=== PATIENT | male | born 1945 | race Caucasian/White ===

== ENCOUNTER → 2018-08-20 | Outpatient (CLI) | payer OTHER, MEDICARE ==
[~2018-08-20] MED LIST: ATORVASTATIN CA40 MG PO; COREG6.25 MG PO; ECOTRIN325 MG PO; FISH OIL500 MG PO; FUROSEMIDE 40 M40 M1 PO; GLIPIZIDE 10 MG10 MG PO; HYDROCODONE-AP1 EAC6 PO; LISINOPRIL20 MG PO; METFORMIN HCL500 MG PO; NIASPAN 500 MG500 M1 PO; ONGLYZA5 MG PO; PLAVIX 75 MG TA75 M1 PO
== END ==
LOC: HYPER 07:04
DX: E11.622 Type 2 diabetes mellitus with other skin ulcer (principal); L97.821 Non-pressure chronic ulcer of other part of left lower leg limited to breakdown of skin; L97.812 Non-pressure chronic ulcer of other part of right lower leg with fat layer exposed; E11.51 Type 2 diabetes mellitus with diabetic peripheral angiopathy without gangrene; E66.01 Morbid (severe) obesity due to excess calories; E78.5 Hyperlipidemia, unspecified; L30.9 Dermatitis, unspecified; I87.2 Venous insufficiency (chronic) (peripheral); I89.0 Lymphedema, not elsewhere classified; I48.91 Unspecified atrial fibrillation; I25.10 Atherosclerotic heart disease of native coronary artery without angina pectoris; I10 Essential (primary) hypertension; F17.200 Nicotine dependence, unspecified, uncomplicated; Z79.84 Long term (current) use of oral hypoglycemic drugs; Z95.5 Presence of coronary angioplasty implant and graft

== ENCOUNTER → 2018-08-29 | Outpatient (CLI) | payer OTHER, MEDICARE | LOC: HYPER 06:55 | DX: E11.622 Type 2 diabetes mellitus with other skin ulcer (principal); L97.821 Non-pressure chronic ulcer of other part of left lower leg limited to breakdown of skin; L97.811 Non-pressure chronic ulcer of other part of right lower leg limited to breakdown of skin; E11.51 Type 2 diabetes mellitus with diabetic peripheral angiopathy without gangrene; E66.01 Morbid (severe) obesity due to excess calories; I10 Essential (primary) hypertension; L30.9 Dermatitis, unspecified; I87.2 Venous insufficiency (chronic) (peripheral); I48.91 Unspecified atrial fibrillation; I25.10 Atherosclerotic heart disease of native coronary artery without angina pectoris; E78.5 Hyperlipidemia, unspecified; F17.200 Nicotine dependence, unspecified, uncomplicated; Z68.36 Body mass index [BMI] 36.0-36.9, adult; Z79.84 Long term (current) use of oral hypoglycemic drugs ==

== ENCOUNTER → 2018-09-06 | Outpatient (CLI) | payer OTHER, MEDICARE | LOC: HYPER 07:00 | DX: E11.622 Type 2 diabetes mellitus with other skin ulcer (principal); L97.821 Non-pressure chronic ulcer of other part of left lower leg limited to breakdown of skin; L97.812 Non-pressure chronic ulcer of other part of right lower leg with fat layer exposed; L30.9 Dermatitis, unspecified; I87.2 Venous insufficiency (chronic) (peripheral); I89.0 Lymphedema, not elsewhere classified; E11.51 Type 2 diabetes mellitus with diabetic peripheral angiopathy without gangrene; E66.01 Morbid (severe) obesity due to excess calories; E78.5 Hyperlipidemia, unspecified; I48.91 Unspecified atrial fibrillation; I25.10 Atherosclerotic heart disease of native coronary artery without angina pectoris; I10 Essential (primary) hypertension; F17.200 Nicotine dependence, unspecified, uncomplicated; Z68.36 Body mass index [BMI] 36.0-36.9, adult; Z79.84 Long term (current) use of oral hypoglycemic drugs ==

== ENCOUNTER → 2018-09-12 | Outpatient (CLI) | payer OTHER, MEDICARE | LOC: HYPER 06:57 | DX: E11.622 Type 2 diabetes mellitus with other skin ulcer (principal); L97.812 Non-pressure chronic ulcer of other part of right lower leg with fat layer exposed; L97.821 Non-pressure chronic ulcer of other part of left lower leg limited to breakdown of skin; L30.9 Dermatitis, unspecified; I87.2 Venous insufficiency (chronic) (peripheral); I89.0 Lymphedema, not elsewhere classified; E11.51 Type 2 diabetes mellitus with diabetic peripheral angiopathy without gangrene; E66.01 Morbid (severe) obesity due to excess calories; E78.5 Hyperlipidemia, unspecified; I48.91 Unspecified atrial fibrillation; I25.10 Atherosclerotic heart disease of native coronary artery without angina pectoris; I10 Essential (primary) hypertension; F17.200 Nicotine dependence, unspecified, uncomplicated; Z79.84 Long term (current) use of oral hypoglycemic drugs ==

== ENCOUNTER → 2018-09-18 | Outpatient (CLI) | payer OTHER, MEDICARE | LOC: HYPER 09-17 12:01 | DX: E11.622 Type 2 diabetes mellitus with other skin ulcer (principal); L97.812 Non-pressure chronic ulcer of other part of right lower leg with fat layer exposed; L97.821 Non-pressure chronic ulcer of other part of left lower leg limited to breakdown of skin; I87.2 Venous insufficiency (chronic) (peripheral); I89.0 Lymphedema, not elsewhere classified; L30.9 Dermatitis, unspecified; E66.01 Morbid (severe) obesity due to excess calories; E11.51 Type 2 diabetes mellitus with diabetic peripheral angiopathy without gangrene; I10 Essential (primary) hypertension; I48.91 Unspecified atrial fibrillation; I25.10 Atherosclerotic heart disease of native coronary artery without angina pectoris; E78.5 Hyperlipidemia, unspecified; F17.200 Nicotine dependence, unspecified, uncomplicated; Z79.84 Long term (current) use of oral hypoglycemic drugs; Z68.36 Body mass index [BMI] 36.0-36.9, adult ==

== ENCOUNTER → 2018-10-02 | Outpatient (CLI) | payer OTHER, MEDICARE | LOC: HYPER 07:01 | DX: E11.622 Type 2 diabetes mellitus with other skin ulcer (principal); L97.812 Non-pressure chronic ulcer of other part of right lower leg with fat layer exposed; L97.822 Non-pressure chronic ulcer of other part of left lower leg with fat layer exposed; E11.51 Type 2 diabetes mellitus with diabetic peripheral angiopathy without gangrene; I87.2 Venous insufficiency (chronic) (peripheral); I89.0 Lymphedema, not elsewhere classified; I10 Essential (primary) hypertension; L30.9 Dermatitis, unspecified; E66.01 Morbid (severe) obesity due to excess calories; I48.91 Unspecified atrial fibrillation; I25.10 Atherosclerotic heart disease of native coronary artery without angina pectoris; E78.5 Hyperlipidemia, unspecified; R60.0 Localized edema; Z68.36 Body mass index [BMI] 36.0-36.9, adult; Z79.84 Long term (current) use of oral hypoglycemic drugs; F17.200 Nicotine dependence, unspecified, uncomplicated ==

== ENCOUNTER → 2018-10-11 | Outpatient (CLI) | payer OTHER, MEDICARE | LOC: HYPER 07:08 | DX: E11.622 Type 2 diabetes mellitus with other skin ulcer (principal); L97.822 Non-pressure chronic ulcer of other part of left lower leg with fat layer exposed; L97.812 Non-pressure chronic ulcer of other part of right lower leg with fat layer exposed; I87.2 Venous insufficiency (chronic) (peripheral); E11.51 Type 2 diabetes mellitus with diabetic peripheral angiopathy without gangrene; I10 Essential (primary) hypertension; I89.0 Lymphedema, not elsewhere classified; L30.9 Dermatitis, unspecified; E66.01 Morbid (severe) obesity due to excess calories; I48.91 Unspecified atrial fibrillation; I25.10 Atherosclerotic heart disease of native coronary artery without angina pectoris; E78.5 Hyperlipidemia, unspecified; F17.200 Nicotine dependence, unspecified, uncomplicated; Z68.36 Body mass index [BMI] 36.0-36.9, adult; Z79.84 Long term (current) use of oral hypoglycemic drugs ==

== ENCOUNTER → 2018-10-17 | Outpatient (CLI) | payer OTHER, MEDICARE | LOC: HYPER 06:35 | DX: E11.622 Type 2 diabetes mellitus with other skin ulcer (principal); L97.822 Non-pressure chronic ulcer of other part of left lower leg with fat layer exposed; L97.812 Non-pressure chronic ulcer of other part of right lower leg with fat layer exposed; L30.9 Dermatitis, unspecified; E11.51 Type 2 diabetes mellitus with diabetic peripheral angiopathy without gangrene; E66.01 Morbid (severe) obesity due to excess calories; E78.5 Hyperlipidemia, unspecified; I87.2 Venous insufficiency (chronic) (peripheral); I89.0 Lymphedema, not elsewhere classified; I48.91 Unspecified atrial fibrillation; I25.10 Atherosclerotic heart disease of native coronary artery without angina pectoris; I10 Essential (primary) hypertension; R60.0 Localized edema; F17.200 Nicotine dependence, unspecified, uncomplicated; Z79.84 Long term (current) use of oral hypoglycemic drugs ==

== ENCOUNTER → 2018-10-31 | Outpatient (CLI) | payer OTHER, MEDICARE | LOC: HYPER 10-22 06:44 | DX: E11.622 Type 2 diabetes mellitus with other skin ulcer (principal); L97.812 Non-pressure chronic ulcer of other part of right lower leg with fat layer exposed; L97.822 Non-pressure chronic ulcer of other part of left lower leg with fat layer exposed; I87.2 Venous insufficiency (chronic) (peripheral); I89.0 Lymphedema, not elsewhere classified; E11.51 Type 2 diabetes mellitus with diabetic peripheral angiopathy without gangrene; I10 Essential (primary) hypertension; L30.9 Dermatitis, unspecified; E78.5 Hyperlipidemia, unspecified; E66.01 Morbid (severe) obesity due to excess calories; I48.91 Unspecified atrial fibrillation; I25.10 Atherosclerotic heart disease of native coronary artery without angina pectoris; R60.9 Edema, unspecified; F17.200 Nicotine dependence, unspecified, uncomplicated; Z79.84 Long term (current) use of oral hypoglycemic drugs; Z68.36 Body mass index [BMI] 36.0-36.9, adult ==

== ENCOUNTER → 2018-11-08 | Outpatient (CLI) | payer OTHER, MEDICARE | LOC: HYPER 06:57 | DX: E11.622 Type 2 diabetes mellitus with other skin ulcer (principal); L97.821 Non-pressure chronic ulcer of other part of left lower leg limited to breakdown of skin; L97.812 Non-pressure chronic ulcer of other part of right lower leg with fat layer exposed; I87.2 Venous insufficiency (chronic) (peripheral); I10 Essential (primary) hypertension; I89.0 Lymphedema, not elsewhere classified; E11.51 Type 2 diabetes mellitus with diabetic peripheral angiopathy without gangrene; L30.9 Dermatitis, unspecified; I48.91 Unspecified atrial fibrillation; I25.10 Atherosclerotic heart disease of native coronary artery without angina pectoris; E78.5 Hyperlipidemia, unspecified; E66.01 Morbid (severe) obesity due to excess calories; R60.9 Edema, unspecified; F17.200 Nicotine dependence, unspecified, uncomplicated; Z68.36 Body mass index [BMI] 36.0-36.9, adult; Z79.84 Long term (current) use of oral hypoglycemic drugs ==

== ENCOUNTER → 2018-11-14 | Outpatient (CLI) | payer OTHER, MEDICARE | LOC: HYPER 06:44 | DX: E11.622 Type 2 diabetes mellitus with other skin ulcer (principal); L97.822 Non-pressure chronic ulcer of other part of left lower leg with fat layer exposed; L97.812 Non-pressure chronic ulcer of other part of right lower leg with fat layer exposed; I87.2 Venous insufficiency (chronic) (peripheral); I89.0 Lymphedema, not elsewhere classified; I10 Essential (primary) hypertension; E11.51 Type 2 diabetes mellitus with diabetic peripheral angiopathy without gangrene; L30.9 Dermatitis, unspecified; E66.01 Morbid (severe) obesity due to excess calories; I48.91 Unspecified atrial fibrillation; I25.10 Atherosclerotic heart disease of native coronary artery without angina pectoris; E78.5 Hyperlipidemia, unspecified; R60.9 Edema, unspecified; F17.200 Nicotine dependence, unspecified, uncomplicated; Z68.36 Body mass index [BMI] 36.0-36.9, adult; Z79.84 Long term (current) use of oral hypoglycemic drugs ==

== ENCOUNTER → 2018-11-21 | Outpatient (CLI) | payer OTHER, MEDICARE | LOC: HYPER 06:54 | DX: E11.622 Type 2 diabetes mellitus with other skin ulcer (principal); L97.821 Non-pressure chronic ulcer of other part of left lower leg limited to breakdown of skin; L97.811 Non-pressure chronic ulcer of other part of right lower leg limited to breakdown of skin; E11.51 Type 2 diabetes mellitus with diabetic peripheral angiopathy without gangrene; I87.2 Venous insufficiency (chronic) (peripheral); I89.0 Lymphedema, not elsewhere classified; I10 Essential (primary) hypertension; R60.9 Edema, unspecified; L30.9 Dermatitis, unspecified; E66.01 Morbid (severe) obesity due to excess calories; I48.91 Unspecified atrial fibrillation; I25.10 Atherosclerotic heart disease of native coronary artery without angina pectoris; E78.5 Hyperlipidemia, unspecified; F17.200 Nicotine dependence, unspecified, uncomplicated; Z79.84 Long term (current) use of oral hypoglycemic drugs ==

== ENCOUNTER → 2018-12-05 | Outpatient (CLI) | payer OTHER, MEDICARE | LOC: HYPER 06:53 | DX: E11.622 Type 2 diabetes mellitus with other skin ulcer (principal); L97.811 Non-pressure chronic ulcer of other part of right lower leg limited to breakdown of skin; L97.821 Non-pressure chronic ulcer of other part of left lower leg limited to breakdown of skin; E11.51 Type 2 diabetes mellitus with diabetic peripheral angiopathy without gangrene; I89.0 Lymphedema, not elsewhere classified; R60.0 Localized edema; L30.9 Dermatitis, unspecified; E66.01 Morbid (severe) obesity due to excess calories; E78.5 Hyperlipidemia, unspecified; I87.2 Venous insufficiency (chronic) (peripheral); I48.91 Unspecified atrial fibrillation; I25.10 Atherosclerotic heart disease of native coronary artery without angina pectoris; F17.200 Nicotine dependence, unspecified, uncomplicated; Z68.36 Body mass index [BMI] 36.0-36.9, adult; Z79.84 Long term (current) use of oral hypoglycemic drugs ==

== ENCOUNTER → 2019-06-05 | Outpatient (CLI) | payer OTHER, MEDICARE | LOC: HYPER 13:36 | DX: E11.622 Type 2 diabetes mellitus with other skin ulcer (principal); L97.812 Non-pressure chronic ulcer of other part of right lower leg with fat layer exposed; L97.822 Non-pressure chronic ulcer of other part of left lower leg with fat layer exposed; E11.51 Type 2 diabetes mellitus with diabetic peripheral angiopathy without gangrene; I89.0 Lymphedema, not elsewhere classified; L30.9 Dermatitis, unspecified; L84 Corns and callosities; I48.91 Unspecified atrial fibrillation; I25.10 Atherosclerotic heart disease of native coronary artery without angina pectoris; E78.5 Hyperlipidemia, unspecified; I10 Essential (primary) hypertension; I87.2 Venous insufficiency (chronic) (peripheral); R60.0 Localized edema; E66.01 Morbid (severe) obesity due to excess calories; F17.200 Nicotine dependence, unspecified, uncomplicated; Z79.84 Long term (current) use of oral hypoglycemic drugs ==

== ENCOUNTER → 2019-06-13 | Outpatient (CLI) | payer OTHER, MEDICARE | LOC: HYPER 14:28 | DX: E11.622 Type 2 diabetes mellitus with other skin ulcer (principal); L97.822 Non-pressure chronic ulcer of other part of left lower leg with fat layer exposed; L97.812 Non-pressure chronic ulcer of other part of right lower leg with fat layer exposed; E11.51 Type 2 diabetes mellitus with diabetic peripheral angiopathy without gangrene; L30.9 Dermatitis, unspecified; I10 Essential (primary) hypertension; I89.0 Lymphedema, not elsewhere classified; L84 Corns and callosities; I48.91 Unspecified atrial fibrillation; I25.10 Atherosclerotic heart disease of native coronary artery without angina pectoris; E78.5 Hyperlipidemia, unspecified; E66.01 Morbid (severe) obesity due to excess calories; R60.0 Localized edema; F17.200 Nicotine dependence, unspecified, uncomplicated; Z79.84 Long term (current) use of oral hypoglycemic drugs; Z68.36 Body mass index [BMI] 36.0-36.9, adult ==

== ENCOUNTER → 2019-06-26 | Outpatient (CLI) | payer OTHER, MEDICARE | LOC: HYPER 08:17 | DX: E11.622 Type 2 diabetes mellitus with other skin ulcer (principal); L97.811 Non-pressure chronic ulcer of other part of right lower leg limited to breakdown of skin; L97.821 Non-pressure chronic ulcer of other part of left lower leg limited to breakdown of skin; I87.2 Venous insufficiency (chronic) (peripheral); I89.0 Lymphedema, not elsewhere classified; E11.51 Type 2 diabetes mellitus with diabetic peripheral angiopathy without gangrene; L30.9 Dermatitis, unspecified; I48.91 Unspecified atrial fibrillation; I25.10 Atherosclerotic heart disease of native coronary artery without angina pectoris; E78.5 Hyperlipidemia, unspecified; I10 Essential (primary) hypertension; E66.01 Morbid (severe) obesity due to excess calories; F17.200 Nicotine dependence, unspecified, uncomplicated; Z79.84 Long term (current) use of oral hypoglycemic drugs; Z68.36 Body mass index [BMI] 36.0-36.9, adult; Z79.82 Long term (current) use of aspirin ==

== ENCOUNTER → 2019-07-03 | Outpatient (CLI) | payer OTHER, MEDICARE | LOC: HYPER 08:53 | DX: E11.622 Type 2 diabetes mellitus with other skin ulcer (principal); L97.811 Non-pressure chronic ulcer of other part of right lower leg limited to breakdown of skin; L97.821 Non-pressure chronic ulcer of other part of left lower leg limited to breakdown of skin; L84 Corns and callosities; I89.0 Lymphedema, not elsewhere classified; L30.9 Dermatitis, unspecified; E11.51 Type 2 diabetes mellitus with diabetic peripheral angiopathy without gangrene; E66.01 Morbid (severe) obesity due to excess calories; E78.5 Hyperlipidemia, unspecified; I87.2 Venous insufficiency (chronic) (peripheral); I48.91 Unspecified atrial fibrillation; I25.10 Atherosclerotic heart disease of native coronary artery without angina pectoris; I10 Essential (primary) hypertension; R60.0 Localized edema; F17.200 Nicotine dependence, unspecified, uncomplicated; Z79.84 Long term (current) use of oral hypoglycemic drugs ==

== ENCOUNTER → 2019-07-11 | Outpatient (CLI) | payer OTHER, MEDICARE | LOC: HYPER 10:30 | DX: E11.622 Type 2 diabetes mellitus with other skin ulcer (principal); L97.811 Non-pressure chronic ulcer of other part of right lower leg limited to breakdown of skin; L97.821 Non-pressure chronic ulcer of other part of left lower leg limited to breakdown of skin; I87.2 Venous insufficiency (chronic) (peripheral); I89.0 Lymphedema, not elsewhere classified; L30.9 Dermatitis, unspecified; E11.51 Type 2 diabetes mellitus with diabetic peripheral angiopathy without gangrene; I48.91 Unspecified atrial fibrillation; I25.10 Atherosclerotic heart disease of native coronary artery without angina pectoris; E78.5 Hyperlipidemia, unspecified; I10 Essential (primary) hypertension; E66.01 Morbid (severe) obesity due to excess calories; F17.200 Nicotine dependence, unspecified, uncomplicated; Z68.36 Body mass index [BMI] 36.0-36.9, adult; Z79.84 Long term (current) use of oral hypoglycemic drugs; Z79.82 Long term (current) use of aspirin ==

== ENCOUNTER → 2019-07-17 | Outpatient (CLI) | payer OTHER, MEDICARE | LOC: HYPER 08:34 | DX: E11.622 Type 2 diabetes mellitus with other skin ulcer (principal); L97.811 Non-pressure chronic ulcer of other part of right lower leg limited to breakdown of skin; L97.221 Non-pressure chronic ulcer of left calf limited to breakdown of skin; E11.51 Type 2 diabetes mellitus with diabetic peripheral angiopathy without gangrene; L30.9 Dermatitis, unspecified; I48.91 Unspecified atrial fibrillation; I25.10 Atherosclerotic heart disease of native coronary artery without angina pectoris; E78.5 Hyperlipidemia, unspecified; I10 Essential (primary) hypertension; I87.2 Venous insufficiency (chronic) (peripheral); E66.01 Morbid (severe) obesity due to excess calories; F17.290 Nicotine dependence, other tobacco product, uncomplicated; Z68.36 Body mass index [BMI] 36.0-36.9, adult; Z79.82 Long term (current) use of aspirin; Z79.84 Long term (current) use of oral hypoglycemic drugs ==

== ENCOUNTER → 2019-07-24 | Outpatient (CLI) | payer OTHER, MEDICARE | LOC: HYPER 11:29 | DX: E11.622 Type 2 diabetes mellitus with other skin ulcer (principal); L97.811 Non-pressure chronic ulcer of other part of right lower leg limited to breakdown of skin; L97.221 Non-pressure chronic ulcer of left calf limited to breakdown of skin; I87.2 Venous insufficiency (chronic) (peripheral); I89.0 Lymphedema, not elsewhere classified; E11.51 Type 2 diabetes mellitus with diabetic peripheral angiopathy without gangrene; L30.9 Dermatitis, unspecified; I48.91 Unspecified atrial fibrillation; I25.10 Atherosclerotic heart disease of native coronary artery without angina pectoris; E78.5 Hyperlipidemia, unspecified; I10 Essential (primary) hypertension; E66.01 Morbid (severe) obesity due to excess calories; F17.290 Nicotine dependence, other tobacco product, uncomplicated; Z68.36 Body mass index [BMI] 36.0-36.9, adult; Z79.84 Long term (current) use of oral hypoglycemic drugs; Z79.82 Long term (current) use of aspirin ==

== ENCOUNTER → 2019-08-07 | Outpatient (CLI) | payer OTHER, MEDICARE | LOC: HYPER 08:31 | DX: E11.622 Type 2 diabetes mellitus with other skin ulcer (principal); L97.228 Non-pressure chronic ulcer of left calf with other specified severity; L97.818 Non-pressure chronic ulcer of other part of right lower leg with other specified severity; I87.2 Venous insufficiency (chronic) (peripheral); I89.0 Lymphedema, not elsewhere classified; E11.51 Type 2 diabetes mellitus with diabetic peripheral angiopathy without gangrene; L30.9 Dermatitis, unspecified; I48.91 Unspecified atrial fibrillation; I25.10 Atherosclerotic heart disease of native coronary artery without angina pectoris; E78.5 Hyperlipidemia, unspecified; I10 Essential (primary) hypertension; E66.01 Morbid (severe) obesity due to excess calories; F17.200 Nicotine dependence, unspecified, uncomplicated; Z68.36 Body mass index [BMI] 36.0-36.9, adult; Z79.82 Long term (current) use of aspirin; Z79.84 Long term (current) use of oral hypoglycemic drugs ==

== ENCOUNTER → 2019-08-21 | Outpatient (CLI) | payer OTHER, MEDICARE | LOC: HYPER 13:35 | DX: I89.0 Lymphedema, not elsewhere classified (principal); E11.51 Type 2 diabetes mellitus with diabetic peripheral angiopathy without gangrene; E66.01 Morbid (severe) obesity due to excess calories; E78.5 Hyperlipidemia, unspecified; L30.9 Dermatitis, unspecified; I48.91 Unspecified atrial fibrillation; I25.10 Atherosclerotic heart disease of native coronary artery without angina pectoris; I10 Essential (primary) hypertension; R60.0 Localized edema; F17.200 Nicotine dependence, unspecified, uncomplicated; Z79.84 Long term (current) use of oral hypoglycemic drugs ==

== ENCOUNTER → 2019-10-16 | Outpatient (CLI) | payer OTHER, MEDICARE | LOC: HYPER 13:29 | DX: I89.0 Lymphedema, not elsewhere classified (principal); I73.9 Peripheral vascular disease, unspecified; L30.9 Dermatitis, unspecified; R60.0 Localized edema; E11.51 Type 2 diabetes mellitus with diabetic peripheral angiopathy without gangrene; E66.01 Morbid (severe) obesity due to excess calories; E78.5 Hyperlipidemia, unspecified; I87.2 Venous insufficiency (chronic) (peripheral); I48.91 Unspecified atrial fibrillation; I25.10 Atherosclerotic heart disease of native coronary artery without angina pectoris; I10 Essential (primary) hypertension; F17.200 Nicotine dependence, unspecified, uncomplicated; Z79.84 Long term (current) use of oral hypoglycemic drugs; Z68.36 Body mass index [BMI] 36.0-36.9, adult ==

== ENCOUNTER → 2020-03-05 | Outpatient (CLI) | payer OTHER, MEDICARE | LOC: HYPER 09:30 | PROVIDERS: ATTEND Emergency Medicine | DX: E11.622 Type 2 diabetes mellitus with other skin ulcer (principal); L97.312 Non-pressure chronic ulcer of right ankle with fat layer exposed; L97.221 Non-pressure chronic ulcer of left calf limited to breakdown of skin; L97.322 Non-pressure chronic ulcer of left ankle with fat layer exposed; I89.0 Lymphedema, not elsewhere classified; R60.0 Localized edema; L30.9 Dermatitis, unspecified; E11.51 Type 2 diabetes mellitus with diabetic peripheral angiopathy without gangrene; E78.5 Hyperlipidemia, unspecified; E66.01 Morbid (severe) obesity due to excess calories; I48.91 Unspecified atrial fibrillation; I25.10 Atherosclerotic heart disease of native coronary artery without angina pectoris; I10 Essential (primary) hypertension; I87.2 Venous insufficiency (chronic) (peripheral); F17.200 Nicotine dependence, unspecified, uncomplicated; Z79.84 Long term (current) use of oral hypoglycemic drugs; Z68.36 Body mass index [BMI] 36.0-36.9, adult ==

== ENCOUNTER → 2020-03-12 | Outpatient (CLI) | payer OTHER, MEDICARE | LOC: HYPER 13:03 | PROVIDERS: ATTEND Emergency Medicine | DX: E11.622 Type 2 diabetes mellitus with other skin ulcer (principal); L97.312 Non-pressure chronic ulcer of right ankle with fat layer exposed; L97.221 Non-pressure chronic ulcer of left calf limited to breakdown of skin; L97.322 Non-pressure chronic ulcer of left ankle with fat layer exposed; I89.0 Lymphedema, not elsewhere classified; R60.0 Localized edema; L30.9 Dermatitis, unspecified; E11.51 Type 2 diabetes mellitus with diabetic peripheral angiopathy without gangrene; E66.01 Morbid (severe) obesity due to excess calories; E78.5 Hyperlipidemia, unspecified; I48.91 Unspecified atrial fibrillation; I25.10 Atherosclerotic heart disease of native coronary artery without angina pectoris; I10 Essential (primary) hypertension; I87.2 Venous insufficiency (chronic) (peripheral); F17.200 Nicotine dependence, unspecified, uncomplicated; Z79.84 Long term (current) use of oral hypoglycemic drugs; Z68.36 Body mass index [BMI] 36.0-36.9, adult ==

== ENCOUNTER → 2020-03-19 | Outpatient (CLI) | payer OTHER, MEDICARE | LOC: HYPER 08:56 | PROVIDERS: ATTEND Emergency Medicine | DX: E11.622 Type 2 diabetes mellitus with other skin ulcer (principal); L97.312 Non-pressure chronic ulcer of right ankle with fat layer exposed; L97.812 Non-pressure chronic ulcer of other part of right lower leg with fat layer exposed; L97.221 Non-pressure chronic ulcer of left calf limited to breakdown of skin; L30.9 Dermatitis, unspecified; E11.51 Type 2 diabetes mellitus with diabetic peripheral angiopathy without gangrene; E66.01 Morbid (severe) obesity due to excess calories; E78.5 Hyperlipidemia, unspecified; R60.0 Localized edema; I89.0 Lymphedema, not elsewhere classified; I48.91 Unspecified atrial fibrillation; I25.10 Atherosclerotic heart disease of native coronary artery without angina pectoris; I10 Essential (primary) hypertension; I87.2 Venous insufficiency (chronic) (peripheral); F17.200 Nicotine dependence, unspecified, uncomplicated; Z79.84 Long term (current) use of oral hypoglycemic drugs; Z68.36 Body mass index [BMI] 36.0-36.9, adult ==

== ENCOUNTER → 2020-03-25 | Outpatient (CLI) | payer OTHER, MEDICARE | LOC: HYPER 13:23 | PROVIDERS: ATTEND Emergency Medicine | DX: E11.622 Type 2 diabetes mellitus with other skin ulcer (principal); L97.312 Non-pressure chronic ulcer of right ankle with fat layer exposed; L97.221 Non-pressure chronic ulcer of left calf limited to breakdown of skin; I89.0 Lymphedema, not elsewhere classified; R60.0 Localized edema; L30.9 Dermatitis, unspecified; E11.51 Type 2 diabetes mellitus with diabetic peripheral angiopathy without gangrene; E66.01 Morbid (severe) obesity due to excess calories; E78.5 Hyperlipidemia, unspecified; I87.2 Venous insufficiency (chronic) (peripheral); I48.91 Unspecified atrial fibrillation; I25.10 Atherosclerotic heart disease of native coronary artery without angina pectoris; I10 Essential (primary) hypertension; F17.200 Nicotine dependence, unspecified, uncomplicated; Z79.84 Long term (current) use of oral hypoglycemic drugs; Z68.36 Body mass index [BMI] 36.0-36.9, adult ==

== ENCOUNTER → 2020-04-02 | Outpatient (CLI) | payer OTHER, MEDICARE | LOC: HYPER 13:19 | PROVIDERS: ATTEND Emergency Medicine | DX: E11.622 Type 2 diabetes mellitus with other skin ulcer (principal); L97.312 Non-pressure chronic ulcer of right ankle with fat layer exposed; L97.821 Non-pressure chronic ulcer of other part of left lower leg limited to breakdown of skin; I87.2 Venous insufficiency (chronic) (peripheral); I89.0 Lymphedema, not elsewhere classified; E11.51 Type 2 diabetes mellitus with diabetic peripheral angiopathy without gangrene; R60.0 Localized edema; L30.9 Dermatitis, unspecified; I48.91 Unspecified atrial fibrillation; I25.10 Atherosclerotic heart disease of native coronary artery without angina pectoris; E78.5 Hyperlipidemia, unspecified; I10 Essential (primary) hypertension; E66.01 Morbid (severe) obesity due to excess calories; F17.200 Nicotine dependence, unspecified, uncomplicated; Z68.36 Body mass index [BMI] 36.0-36.9, adult; Z79.84 Long term (current) use of oral hypoglycemic drugs ==

== ENCOUNTER → 2020-04-16 | Outpatient (CLI) | payer OTHER, MEDICARE | LOC: HYPER 13:28 | PROVIDERS: ATTEND Emergency Medicine | DX: E11.622 Type 2 diabetes mellitus with other skin ulcer (principal); L97.312 Non-pressure chronic ulcer of right ankle with fat layer exposed; L97.821 Non-pressure chronic ulcer of other part of left lower leg limited to breakdown of skin; L30.9 Dermatitis, unspecified; E11.51 Type 2 diabetes mellitus with diabetic peripheral angiopathy without gangrene; E66.01 Morbid (severe) obesity due to excess calories; E78.5 Hyperlipidemia, unspecified; I89.0 Lymphedema, not elsewhere classified; R60.0 Localized edema; I48.91 Unspecified atrial fibrillation; I25.10 Atherosclerotic heart disease of native coronary artery without angina pectoris; I10 Essential (primary) hypertension; I87.2 Venous insufficiency (chronic) (peripheral); F17.200 Nicotine dependence, unspecified, uncomplicated; Z79.84 Long term (current) use of oral hypoglycemic drugs; Z68.36 Body mass index [BMI] 36.0-36.9, adult ==

== ENCOUNTER → 2020-04-30 | Outpatient (CLI) | payer OTHER, MEDICARE | LOC: HYPER 10:29 | PROVIDERS: ATTEND Emergency Medicine | DX: E11.622 Type 2 diabetes mellitus with other skin ulcer (principal); L97.312 Non-pressure chronic ulcer of right ankle with fat layer exposed; L97.821 Non-pressure chronic ulcer of other part of left lower leg limited to breakdown of skin; I87.2 Venous insufficiency (chronic) (peripheral); E11.51 Type 2 diabetes mellitus with diabetic peripheral angiopathy without gangrene; I89.0 Lymphedema, not elsewhere classified; E11.628 Type 2 diabetes mellitus with other skin complications; R60.0 Localized edema; L30.9 Dermatitis, unspecified; I48.91 Unspecified atrial fibrillation; I25.10 Atherosclerotic heart disease of native coronary artery without angina pectoris; E78.5 Hyperlipidemia, unspecified; I10 Essential (primary) hypertension; E66.01 Morbid (severe) obesity due to excess calories; F17.200 Nicotine dependence, unspecified, uncomplicated; Z68.36 Body mass index [BMI] 36.0-36.9, adult; Z79.82 Long term (current) use of aspirin; Z79.84 Long term (current) use of oral hypoglycemic drugs ==

== ENCOUNTER → 2020-05-12 | Outpatient (CLI) | payer OTHER, MEDICARE | LOC: HYPER 10:09 | PROVIDERS: ATTEND Emergency Medicine | DX: E11.622 Type 2 diabetes mellitus with other skin ulcer (principal); L97.312 Non-pressure chronic ulcer of right ankle with fat layer exposed; L97.821 Non-pressure chronic ulcer of other part of left lower leg limited to breakdown of skin; I87.2 Venous insufficiency (chronic) (peripheral); E11.628 Type 2 diabetes mellitus with other skin complications; L30.9 Dermatitis, unspecified; I89.0 Lymphedema, not elsewhere classified; E11.51 Type 2 diabetes mellitus with diabetic peripheral angiopathy without gangrene; I48.91 Unspecified atrial fibrillation; I25.10 Atherosclerotic heart disease of native coronary artery without angina pectoris; E78.5 Hyperlipidemia, unspecified; I10 Essential (primary) hypertension; E66.01 Morbid (severe) obesity due to excess calories; F17.200 Nicotine dependence, unspecified, uncomplicated; Z68.36 Body mass index [BMI] 36.0-36.9, adult; Z79.84 Long term (current) use of oral hypoglycemic drugs; Z79.82 Long term (current) use of aspirin ==

== ENCOUNTER → 2020-05-28 | Outpatient (CLI) | payer OTHER, MEDICARE | LOC: HYPER 10:03 | PROVIDERS: ATTEND Emergency Medicine | DX: E11.622 Type 2 diabetes mellitus with other skin ulcer (principal); L97.312 Non-pressure chronic ulcer of right ankle with fat layer exposed; L97.821 Non-pressure chronic ulcer of other part of left lower leg limited to breakdown of skin; I87.2 Venous insufficiency (chronic) (peripheral); L30.9 Dermatitis, unspecified; I89.0 Lymphedema, not elsewhere classified; R60.0 Localized edema; E11.51 Type 2 diabetes mellitus with diabetic peripheral angiopathy without gangrene; E66.01 Morbid (severe) obesity due to excess calories; E78.5 Hyperlipidemia, unspecified; I10 Essential (primary) hypertension; I48.91 Unspecified atrial fibrillation; I25.10 Atherosclerotic heart disease of native coronary artery without angina pectoris; F17.200 Nicotine dependence, unspecified, uncomplicated; Z68.36 Body mass index [BMI] 36.0-36.9, adult; Z79.84 Long term (current) use of oral hypoglycemic drugs ==

== ENCOUNTER → 2020-06-25 | Outpatient (CLI) | payer OTHER, MEDICARE | LOC: HYPER 09:46 | PROVIDERS: ATTEND Emergency Medicine | DX: E11.622 Type 2 diabetes mellitus with other skin ulcer (principal); L97.822 Non-pressure chronic ulcer of other part of left lower leg with fat layer exposed; L97.811 Non-pressure chronic ulcer of other part of right lower leg limited to breakdown of skin; I89.0 Lymphedema, not elsewhere classified; E11.51 Type 2 diabetes mellitus with diabetic peripheral angiopathy without gangrene; I87.2 Venous insufficiency (chronic) (peripheral); I10 Essential (primary) hypertension; R60.0 Localized edema; L30.9 Dermatitis, unspecified; I48.91 Unspecified atrial fibrillation; I25.10 Atherosclerotic heart disease of native coronary artery without angina pectoris; E78.5 Hyperlipidemia, unspecified; E66.01 Morbid (severe) obesity due to excess calories; F17.200 Nicotine dependence, unspecified, uncomplicated; Z68.36 Body mass index [BMI] 36.0-36.9, adult; Z79.84 Long term (current) use of oral hypoglycemic drugs; Z79.82 Long term (current) use of aspirin ==

== ENCOUNTER → 2020-07-02 | Outpatient (CLI) | payer OTHER, MEDICARE | LOC: HYPER 13:17 | PROVIDERS: ATTEND Emergency Medicine | DX: E11.622 Type 2 diabetes mellitus with other skin ulcer (principal); L97.822 Non-pressure chronic ulcer of other part of left lower leg with fat layer exposed; L97.811 Non-pressure chronic ulcer of other part of right lower leg limited to breakdown of skin; L97.312 Non-pressure chronic ulcer of right ankle with fat layer exposed; I89.0 Lymphedema, not elsewhere classified; R60.0 Localized edema; L30.9 Dermatitis, unspecified; E11.51 Type 2 diabetes mellitus with diabetic peripheral angiopathy without gangrene; E78.5 Hyperlipidemia, unspecified; E66.01 Morbid (severe) obesity due to excess calories; I87.2 Venous insufficiency (chronic) (peripheral); I10 Essential (primary) hypertension; I48.91 Unspecified atrial fibrillation; I25.10 Atherosclerotic heart disease of native coronary artery without angina pectoris; F17.200 Nicotine dependence, unspecified, uncomplicated; Z68.36 Body mass index [BMI] 36.0-36.9, adult; Z79.84 Long term (current) use of oral hypoglycemic drugs; Z79.82 Long term (current) use of aspirin ==

== ENCOUNTER → 2020-07-09 | Outpatient (CLI) | payer OTHER, MEDICARE | LOC: HYPER 09:23 | PROVIDERS: ATTEND Emergency Medicine | DX: E11.622 Type 2 diabetes mellitus with other skin ulcer (principal); L97.822 Non-pressure chronic ulcer of other part of left lower leg with fat layer exposed; L97.811 Non-pressure chronic ulcer of other part of right lower leg limited to breakdown of skin; L97.312 Non-pressure chronic ulcer of right ankle with fat layer exposed; I89.0 Lymphedema, not elsewhere classified; R60.0 Localized edema; L30.9 Dermatitis, unspecified; E11.51 Type 2 diabetes mellitus with diabetic peripheral angiopathy without gangrene; E78.5 Hyperlipidemia, unspecified; E66.01 Morbid (severe) obesity due to excess calories; I87.2 Venous insufficiency (chronic) (peripheral); I10 Essential (primary) hypertension; I48.91 Unspecified atrial fibrillation; I25.10 Atherosclerotic heart disease of native coronary artery without angina pectoris; F17.200 Nicotine dependence, unspecified, uncomplicated; Z68.36 Body mass index [BMI] 36.0-36.9, adult; Z79.84 Long term (current) use of oral hypoglycemic drugs ==

== ENCOUNTER → 2020-07-15 | Outpatient (CLI) | payer OTHER, MEDICARE | LOC: HYPER 13:42 | PROVIDERS: ATTEND Emergency Medicine | DX: E11.622 Type 2 diabetes mellitus with other skin ulcer (principal); L97.822 Non-pressure chronic ulcer of other part of left lower leg with fat layer exposed; L97.811 Non-pressure chronic ulcer of other part of right lower leg limited to breakdown of skin; L97.312 Non-pressure chronic ulcer of right ankle with fat layer exposed; I89.0 Lymphedema, not elsewhere classified; R60.0 Localized edema; L30.9 Dermatitis, unspecified; E11.51 Type 2 diabetes mellitus with diabetic peripheral angiopathy without gangrene; E78.5 Hyperlipidemia, unspecified; E66.01 Morbid (severe) obesity due to excess calories; I87.2 Venous insufficiency (chronic) (peripheral); I10 Essential (primary) hypertension; I48.91 Unspecified atrial fibrillation; I25.10 Atherosclerotic heart disease of native coronary artery without angina pectoris; F17.200 Nicotine dependence, unspecified, uncomplicated; Z68.36 Body mass index [BMI] 36.0-36.9, adult; Z79.84 Long term (current) use of oral hypoglycemic drugs ==

== ENCOUNTER → 2020-07-23 | Outpatient (CLI) | payer OTHER, MEDICARE | LOC: SJCVC 10:43 | PROVIDERS: ATTEND Internal Medicine | DX: R94.31 Abnormal electrocardiogram [ECG] [EKG] (principal); I45.10 Unspecified right bundle-branch block; I48.0 Paroxysmal atrial fibrillation; I25.10 Atherosclerotic heart disease of native coronary artery without angina pectoris; E11.9 Type 2 diabetes mellitus without complications; E78.00 Pure hypercholesterolemia, unspecified; I25.5 Ischemic cardiomyopathy; F17.200 Nicotine dependence, unspecified, uncomplicated; Z79.4 Long term (current) use of insulin; Z79.899 Other long term (current) drug therapy; Z98.61 Coronary angioplasty status ==

== ENCOUNTER → 2020-07-23 | Outpatient (CLI) | payer OTHER, MEDICARE | LOC: HYPER | PROVIDERS: ATTEND Emergency Medicine | DX: E11.622 Type 2 diabetes mellitus with other skin ulcer (principal); L97.822 Non-pressure chronic ulcer of other part of left lower leg with fat layer exposed; L97.811 Non-pressure chronic ulcer of other part of right lower leg limited to breakdown of skin; L97.312 Non-pressure chronic ulcer of right ankle with fat layer exposed; L30.9 Dermatitis, unspecified; I89.0 Lymphedema, not elsewhere classified; R60.0 Localized edema; E11.51 Type 2 diabetes mellitus with diabetic peripheral angiopathy without gangrene; E78.5 Hyperlipidemia, unspecified; E66.01 Morbid (severe) obesity due to excess calories; I87.2 Venous insufficiency (chronic) (peripheral); I10 Essential (primary) hypertension; I48.91 Unspecified atrial fibrillation; I25.10 Atherosclerotic heart disease of native coronary artery without angina pectoris; F17.200 Nicotine dependence, unspecified, uncomplicated; Z68.36 Body mass index [BMI] 36.0-36.9, adult; Z79.84 Long term (current) use of oral hypoglycemic drugs ==

== ENCOUNTER → 2020-08-10 | Outpatient (CLI) | payer OTHER, MEDICARE | LOC: HYPER 14:43 | PROVIDERS: ATTEND Emergency Medicine | DX: E11.622 Type 2 diabetes mellitus with other skin ulcer (principal); L97.822 Non-pressure chronic ulcer of other part of left lower leg with fat layer exposed; L97.811 Non-pressure chronic ulcer of other part of right lower leg limited to breakdown of skin; L97.312 Non-pressure chronic ulcer of right ankle with fat layer exposed; L30.9 Dermatitis, unspecified; I89.0 Lymphedema, not elsewhere classified; R60.0 Localized edema; E11.51 Type 2 diabetes mellitus with diabetic peripheral angiopathy without gangrene; E78.5 Hyperlipidemia, unspecified; E66.01 Morbid (severe) obesity due to excess calories; I87.2 Venous insufficiency (chronic) (peripheral); I10 Essential (primary) hypertension; I48.91 Unspecified atrial fibrillation; I25.10 Atherosclerotic heart disease of native coronary artery without angina pectoris; F17.200 Nicotine dependence, unspecified, uncomplicated; Z68.36 Body mass index [BMI] 36.0-36.9, adult; Z79.84 Long term (current) use of oral hypoglycemic drugs ==

== ENCOUNTER → 2020-08-10 | Outpatient (CLI) | payer OTHER, MEDICARE | LOC: SJCVCIMAG 07-30 12:05 | PROVIDERS: ATTEND Internal Medicine | DX: Z01.810 Encounter for preprocedural cardiovascular examination (principal); R06.00 Dyspnea, unspecified; I25.10 Atherosclerotic heart disease of native coronary artery without angina pectoris; I48.91 Unspecified atrial fibrillation; I08.8 Other rheumatic multiple valve diseases; I11.9 Hypertensive heart disease without heart failure; E11.51 Type 2 diabetes mellitus with diabetic peripheral angiopathy without gangrene; I25.5 Ischemic cardiomyopathy; E78.5 Hyperlipidemia, unspecified; E78.00 Pure hypercholesterolemia, unspecified; Z87.891 Personal history of nicotine dependence; Z79.82 Long term (current) use of aspirin; Z79.899 Other long term (current) drug therapy ==

== ENCOUNTER → 2020-08-20 | Outpatient (CLI) | payer OTHER, MEDICARE | LOC: HYPER 11:06 | PROVIDERS: ATTEND Emergency Medicine | DX: E11.622 Type 2 diabetes mellitus with other skin ulcer (principal); L97.822 Non-pressure chronic ulcer of other part of left lower leg with fat layer exposed; L97.811 Non-pressure chronic ulcer of other part of right lower leg limited to breakdown of skin; L97.312 Non-pressure chronic ulcer of right ankle with fat layer exposed; L30.9 Dermatitis, unspecified; I89.0 Lymphedema, not elsewhere classified; R60.0 Localized edema; E11.51 Type 2 diabetes mellitus with diabetic peripheral angiopathy without gangrene; E78.5 Hyperlipidemia, unspecified; E66.01 Morbid (severe) obesity due to excess calories; I87.2 Venous insufficiency (chronic) (peripheral); I10 Essential (primary) hypertension; I48.91 Unspecified atrial fibrillation; I25.10 Atherosclerotic heart disease of native coronary artery without angina pectoris; F17.200 Nicotine dependence, unspecified, uncomplicated; Z68.36 Body mass index [BMI] 36.0-36.9, adult; Z79.84 Long term (current) use of oral hypoglycemic drugs ==

== ENCOUNTER → 2020-08-27 | Outpatient (CLI) | payer OTHER, MEDICARE | LOC: HYPER 09:54 | PROVIDERS: ATTEND Emergency Medicine | DX: E11.622 Type 2 diabetes mellitus with other skin ulcer (principal); L97.822 Non-pressure chronic ulcer of other part of left lower leg with fat layer exposed; L97.811 Non-pressure chronic ulcer of other part of right lower leg limited to breakdown of skin; L97.312 Non-pressure chronic ulcer of right ankle with fat layer exposed; L30.9 Dermatitis, unspecified; I89.0 Lymphedema, not elsewhere classified; R60.0 Localized edema; E11.51 Type 2 diabetes mellitus with diabetic peripheral angiopathy without gangrene; E78.5 Hyperlipidemia, unspecified; E66.01 Morbid (severe) obesity due to excess calories; I87.2 Venous insufficiency (chronic) (peripheral); I10 Essential (primary) hypertension; I48.91 Unspecified atrial fibrillation; I25.10 Atherosclerotic heart disease of native coronary artery without angina pectoris; F17.200 Nicotine dependence, unspecified, uncomplicated; Z68.36 Body mass index [BMI] 36.0-36.9, adult; Z79.84 Long term (current) use of oral hypoglycemic drugs ==

== ENCOUNTER → 2020-09-03 | Outpatient (CLI) | payer OTHER, MEDICARE | LOC: HYPER 09:33 | PROVIDERS: ATTEND Emergency Medicine | DX: E11.622 Type 2 diabetes mellitus with other skin ulcer (principal); L97.312 Non-pressure chronic ulcer of right ankle with fat layer exposed; L97.822 Non-pressure chronic ulcer of other part of left lower leg with fat layer exposed; L97.811 Non-pressure chronic ulcer of other part of right lower leg limited to breakdown of skin; I87.2 Venous insufficiency (chronic) (peripheral); L30.9 Dermatitis, unspecified; I89.0 Lymphedema, not elsewhere classified; E11.51 Type 2 diabetes mellitus with diabetic peripheral angiopathy without gangrene; R60.0 Localized edema; I48.91 Unspecified atrial fibrillation; I25.10 Atherosclerotic heart disease of native coronary artery without angina pectoris; E78.5 Hyperlipidemia, unspecified; I10 Essential (primary) hypertension; E66.01 Morbid (severe) obesity due to excess calories; F17.200 Nicotine dependence, unspecified, uncomplicated; Z68.36 Body mass index [BMI] 36.0-36.9, adult; Z79.82 Long term (current) use of aspirin; Z79.899 Other long term (current) drug therapy; Z79.84 Long term (current) use of oral hypoglycemic drugs ==

== ENCOUNTER → 2020-09-10 | Outpatient (CLI) | payer OTHER, MEDICARE | LOC: HYPER 09:46 | PROVIDERS: ATTEND Emergency Medicine Emergency Medical Services | DX: E11.622 Type 2 diabetes mellitus with other skin ulcer (principal); L97.822 Non-pressure chronic ulcer of other part of left lower leg with fat layer exposed; L97.811 Non-pressure chronic ulcer of other part of right lower leg limited to breakdown of skin; L97.312 Non-pressure chronic ulcer of right ankle with fat layer exposed; L30.9 Dermatitis, unspecified; I89.0 Lymphedema, not elsewhere classified; R60.0 Localized edema; E11.51 Type 2 diabetes mellitus with diabetic peripheral angiopathy without gangrene; E78.5 Hyperlipidemia, unspecified; E66.01 Morbid (severe) obesity due to excess calories; I87.2 Venous insufficiency (chronic) (peripheral); I10 Essential (primary) hypertension; I48.91 Unspecified atrial fibrillation; I25.10 Atherosclerotic heart disease of native coronary artery without angina pectoris; F17.200 Nicotine dependence, unspecified, uncomplicated; Z68.36 Body mass index [BMI] 36.0-36.9, adult; Z79.84 Long term (current) use of oral hypoglycemic drugs ==

== ENCOUNTER → 2020-09-17 | Outpatient (CLI) | payer OTHER, MEDICARE | LOC: HYPER 09:44 | PROVIDERS: ATTEND Emergency Medicine | DX: E11.622 Type 2 diabetes mellitus with other skin ulcer (principal); L97.312 Non-pressure chronic ulcer of right ankle with fat layer exposed; L97.822 Non-pressure chronic ulcer of other part of left lower leg with fat layer exposed; L97.811 Non-pressure chronic ulcer of other part of right lower leg limited to breakdown of skin; I87.2 Venous insufficiency (chronic) (peripheral); L30.9 Dermatitis, unspecified; I89.0 Lymphedema, not elsewhere classified; R60.0 Localized edema; E11.51 Type 2 diabetes mellitus with diabetic peripheral angiopathy without gangrene; I48.91 Unspecified atrial fibrillation; I25.10 Atherosclerotic heart disease of native coronary artery without angina pectoris; E78.5 Hyperlipidemia, unspecified; I10 Essential (primary) hypertension; E66.01 Morbid (severe) obesity due to excess calories; F17.200 Nicotine dependence, unspecified, uncomplicated; Z68.36 Body mass index [BMI] 36.0-36.9, adult; Z79.82 Long term (current) use of aspirin; Z79.899 Other long term (current) drug therapy; Z79.84 Long term (current) use of oral hypoglycemic drugs ==

== ENCOUNTER → 2020-09-17 | Outpatient (CLI) | payer OTHER, MEDICARE | LOC: SJCVCIMAG 09:38 | PROVIDERS: ATTEND Internal Medicine | DX: I65.23 Occlusion and stenosis of bilateral carotid arteries (principal); E11.9 Type 2 diabetes mellitus without complications; E78.5 Hyperlipidemia, unspecified; I10 Essential (primary) hypertension; I73.9 Peripheral vascular disease, unspecified; Z95.828 Presence of other vascular implants and grafts; F17.200 Nicotine dependence, unspecified, uncomplicated; Z79.82 Long term (current) use of aspirin; Z79.84 Long term (current) use of oral hypoglycemic drugs; Z79.1 Long term (current) use of non-steroidal anti-inflammatories (NSAID) ==

== ENCOUNTER → 2020-09-23 | Outpatient (CLI) | payer OTHER, MEDICARE | LOC: HYPER 13:16 | PROVIDERS: ATTEND Emergency Medicine | DX: E11.622 Type 2 diabetes mellitus with other skin ulcer (principal); L97.312 Non-pressure chronic ulcer of right ankle with fat layer exposed; L97.822 Non-pressure chronic ulcer of other part of left lower leg with fat layer exposed; L97.811 Non-pressure chronic ulcer of other part of right lower leg limited to breakdown of skin; I87.2 Venous insufficiency (chronic) (peripheral); L30.9 Dermatitis, unspecified; I89.0 Lymphedema, not elsewhere classified; R60.0 Localized edema; E11.51 Type 2 diabetes mellitus with diabetic peripheral angiopathy without gangrene; I48.91 Unspecified atrial fibrillation; I25.10 Atherosclerotic heart disease of native coronary artery without angina pectoris; E78.5 Hyperlipidemia, unspecified; I10 Essential (primary) hypertension; E66.01 Morbid (severe) obesity due to excess calories; F17.200 Nicotine dependence, unspecified, uncomplicated; Z68.36 Body mass index [BMI] 36.0-36.9, adult; Z79.82 Long term (current) use of aspirin; Z79.84 Long term (current) use of oral hypoglycemic drugs ==

== ENCOUNTER → 2020-10-01 | Outpatient (CLI) | payer OTHER, MEDICARE | LOC: HYPER 09:21 | PROVIDERS: ATTEND Emergency Medicine | DX: E11.622 Type 2 diabetes mellitus with other skin ulcer (principal); L97.822 Non-pressure chronic ulcer of other part of left lower leg with fat layer exposed; L97.812 Non-pressure chronic ulcer of other part of right lower leg with fat layer exposed; L97.312 Non-pressure chronic ulcer of right ankle with fat layer exposed; I87.2 Venous insufficiency (chronic) (peripheral); E11.51 Type 2 diabetes mellitus with diabetic peripheral angiopathy without gangrene; I89.0 Lymphedema, not elsewhere classified; R60.0 Localized edema; L30.9 Dermatitis, unspecified; I48.91 Unspecified atrial fibrillation; I25.10 Atherosclerotic heart disease of native coronary artery without angina pectoris; E78.5 Hyperlipidemia, unspecified; I10 Essential (primary) hypertension; E66.01 Morbid (severe) obesity due to excess calories; F17.200 Nicotine dependence, unspecified, uncomplicated; Z68.36 Body mass index [BMI] 36.0-36.9, adult; Z79.84 Long term (current) use of oral hypoglycemic drugs; Z79.82 Long term (current) use of aspirin; Z79.899 Other long term (current) drug therapy ==

== ENCOUNTER → 2020-12-14 | Outpatient (CLI) | payer OTHER, MEDICARE | LOC: HYPER 08:54 | PROVIDERS: ATTEND Emergency Medicine | DX: E11.622 Type 2 diabetes mellitus with other skin ulcer (principal); L97.821 Non-pressure chronic ulcer of other part of left lower leg limited to breakdown of skin; L97.811 Non-pressure chronic ulcer of other part of right lower leg limited to breakdown of skin; L97.312 Non-pressure chronic ulcer of right ankle with fat layer exposed; E11.51 Type 2 diabetes mellitus with diabetic peripheral angiopathy without gangrene; I87.2 Venous insufficiency (chronic) (peripheral); I89.0 Lymphedema, not elsewhere classified; R60.0 Localized edema; L30.9 Dermatitis, unspecified; I48.91 Unspecified atrial fibrillation; I25.10 Atherosclerotic heart disease of native coronary artery without angina pectoris; E78.5 Hyperlipidemia, unspecified; I10 Essential (primary) hypertension; E66.01 Morbid (severe) obesity due to excess calories; F17.200 Nicotine dependence, unspecified, uncomplicated; Z68.36 Body mass index [BMI] 36.0-36.9, adult; Z96.651 Presence of right artificial knee joint; Z79.899 Other long term (current) drug therapy; Z79.84 Long term (current) use of oral hypoglycemic drugs; Z95.828 Presence of other vascular implants and grafts ==

== ENCOUNTER → 2020-12-14 | Outpatient (CLI) | payer OTHER, MEDICARE | LOC: SJCVC 13:43 | PROVIDERS: ATTEND Internal Medicine | DX: I48.20 Chronic atrial fibrillation, unspecified (principal); I25.5 Ischemic cardiomyopathy; E78.5 Hyperlipidemia, unspecified; I26.99 Other pulmonary embolism without acute cor pulmonale; I11.9 Hypertensive heart disease without heart failure; E11.622 Type 2 diabetes mellitus with other skin ulcer; L98.499 Non-pressure chronic ulcer of skin of other sites with unspecified severity; E11.51 Type 2 diabetes mellitus with diabetic peripheral angiopathy without gangrene; I45.10 Unspecified right bundle-branch block; E78.00 Pure hypercholesterolemia, unspecified; M19.90 Unspecified osteoarthritis, unspecified site; R53.83 Other fatigue; F17.200 Nicotine dependence, unspecified, uncomplicated; Z99.3 Dependence on wheelchair; Z96.651 Presence of right artificial knee joint; Z96.611 Presence of right artificial shoulder joint; Z79.84 Long term (current) use of oral hypoglycemic drugs; Z79.82 Long term (current) use of aspirin; Z79.899 Other long term (current) drug therapy ==

== ENCOUNTER → 2021-01-07 | Outpatient (CLI) | payer OTHER, MEDICARE | LOC: HYPER 07:49 | PROVIDERS: ATTEND Emergency Medicine | DX: E11.622 Type 2 diabetes mellitus with other skin ulcer (principal); L97.821 Non-pressure chronic ulcer of other part of left lower leg limited to breakdown of skin; L97.811 Non-pressure chronic ulcer of other part of right lower leg limited to breakdown of skin; L97.312 Non-pressure chronic ulcer of right ankle with fat layer exposed; E11.51 Type 2 diabetes mellitus with diabetic peripheral angiopathy without gangrene; I87.2 Venous insufficiency (chronic) (peripheral); I89.0 Lymphedema, not elsewhere classified; R60.0 Localized edema; L30.9 Dermatitis, unspecified; I48.91 Unspecified atrial fibrillation; I25.10 Atherosclerotic heart disease of native coronary artery without angina pectoris; E78.5 Hyperlipidemia, unspecified; I10 Essential (primary) hypertension; E66.01 Morbid (severe) obesity due to excess calories; F17.200 Nicotine dependence, unspecified, uncomplicated; Z68.36 Body mass index [BMI] 36.0-36.9, adult; Z96.651 Presence of right artificial knee joint; Z79.84 Long term (current) use of oral hypoglycemic drugs; Z95.828 Presence of other vascular implants and grafts ==

== ENCOUNTER → 2021-01-28 | Outpatient (CLI) | payer OTHER, MEDICARE | LOC: HYPER 07:44 | PROVIDERS: ATTEND Emergency Medicine | DX: E11.622 Type 2 diabetes mellitus with other skin ulcer (principal); L97.821 Non-pressure chronic ulcer of other part of left lower leg limited to breakdown of skin; L97.811 Non-pressure chronic ulcer of other part of right lower leg limited to breakdown of skin; L97.312 Non-pressure chronic ulcer of right ankle with fat layer exposed; E11.51 Type 2 diabetes mellitus with diabetic peripheral angiopathy without gangrene; I87.2 Venous insufficiency (chronic) (peripheral); I89.0 Lymphedema, not elsewhere classified; R60.0 Localized edema; L30.9 Dermatitis, unspecified; E66.01 Morbid (severe) obesity due to excess calories; E78.5 Hyperlipidemia, unspecified; I48.91 Unspecified atrial fibrillation; I25.10 Atherosclerotic heart disease of native coronary artery without angina pectoris; I10 Essential (primary) hypertension; F17.200 Nicotine dependence, unspecified, uncomplicated; Z68.36 Body mass index [BMI] 36.0-36.9, adult; Z96.651 Presence of right artificial knee joint; Z79.84 Long term (current) use of oral hypoglycemic drugs; Z95.828 Presence of other vascular implants and grafts ==

== ENCOUNTER → 2021-02-17 | Outpatient (CLI) | payer OTHER, MEDICARE | LOC: HYPER 08:20 | PROVIDERS: ATTEND Emergency Medicine | DX: E11.622 Type 2 diabetes mellitus with other skin ulcer (principal); L97.821 Non-pressure chronic ulcer of other part of left lower leg limited to breakdown of skin; L97.811 Non-pressure chronic ulcer of other part of right lower leg limited to breakdown of skin; L97.312 Non-pressure chronic ulcer of right ankle with fat layer exposed; E11.51 Type 2 diabetes mellitus with diabetic peripheral angiopathy without gangrene; I87.2 Venous insufficiency (chronic) (peripheral); I89.0 Lymphedema, not elsewhere classified; R60.0 Localized edema; L30.9 Dermatitis, unspecified; E66.01 Morbid (severe) obesity due to excess calories; E78.5 Hyperlipidemia, unspecified; I48.91 Unspecified atrial fibrillation; I25.10 Atherosclerotic heart disease of native coronary artery without angina pectoris; I10 Essential (primary) hypertension; F17.200 Nicotine dependence, unspecified, uncomplicated; Z68.36 Body mass index [BMI] 36.0-36.9, adult; Z96.651 Presence of right artificial knee joint; Z79.84 Long term (current) use of oral hypoglycemic drugs; Z95.828 Presence of other vascular implants and grafts ==

== ENCOUNTER → 2021-03-31 | Outpatient (CLI) | payer OTHER, MEDICARE | LOC: HYPER 08:20 | PROVIDERS: ATTEND Emergency Medicine | DX: E11.622 Type 2 diabetes mellitus with other skin ulcer (principal); L97.821 Non-pressure chronic ulcer of other part of left lower leg limited to breakdown of skin; L97.811 Non-pressure chronic ulcer of other part of right lower leg limited to breakdown of skin; L97.312 Non-pressure chronic ulcer of right ankle with fat layer exposed; I87.2 Venous insufficiency (chronic) (peripheral); I89.0 Lymphedema, not elsewhere classified; E11.51 Type 2 diabetes mellitus with diabetic peripheral angiopathy without gangrene; R60.0 Localized edema; L30.9 Dermatitis, unspecified; I48.91 Unspecified atrial fibrillation; I25.10 Atherosclerotic heart disease of native coronary artery without angina pectoris; E78.5 Hyperlipidemia, unspecified; I10 Essential (primary) hypertension; E66.01 Morbid (severe) obesity due to excess calories; F17.200 Nicotine dependence, unspecified, uncomplicated; Z68.36 Body mass index [BMI] 36.0-36.9, adult; Z79.84 Long term (current) use of oral hypoglycemic drugs; Z79.01 Long term (current) use of anticoagulants; Z79.899 Other long term (current) drug therapy; X58.XXXD Exposure to other specified factors, subsequent encounter ==

== ENCOUNTER → 2021-04-21 | Outpatient (CLI) | payer OTHER, MEDICARE | LOC: HYPER 11:56 | PROVIDERS: ATTEND Emergency Medicine | DX: T81.89XA Other complications of procedures, not elsewhere classified, initial encounter (principal); E11.622 Type 2 diabetes mellitus with other skin ulcer; L97.822 Non-pressure chronic ulcer of other part of left lower leg with fat layer exposed; L97.312 Non-pressure chronic ulcer of right ankle with fat layer exposed; L97.811 Non-pressure chronic ulcer of other part of right lower leg limited to breakdown of skin; I87.2 Venous insufficiency (chronic) (peripheral); E11.51 Type 2 diabetes mellitus with diabetic peripheral angiopathy without gangrene; I89.0 Lymphedema, not elsewhere classified; R60.0 Localized edema; L30.9 Dermatitis, unspecified; I48.91 Unspecified atrial fibrillation; I25.10 Atherosclerotic heart disease of native coronary artery without angina pectoris; E78.5 Hyperlipidemia, unspecified; I10 Essential (primary) hypertension; E66.01 Morbid (severe) obesity due to excess calories; F17.200 Nicotine dependence, unspecified, uncomplicated; Z68.36 Body mass index [BMI] 36.0-36.9, adult; Z79.84 Long term (current) use of oral hypoglycemic drugs; Z79.01 Long term (current) use of anticoagulants; Z79.899 Other long term (current) drug therapy; Y83.8 Other surgical procedures as the cause of abnormal reaction of the patient, or of later complication, without mention of misadventure at the time of the procedure; Y92.238 Other place in hospital as the place of occurrence of the external cause ==

== ENCOUNTER 2021-04-29 11:40 | Inpatient (IN) | payer OTHER, MEDICARE ==
[~2021-04-29] VITALS: Ht 182.9 cm; Wt 112.0 kg
[2021-04-29 11:49] VITALS: BP 163/75
[2021-04-29 12:24] LABS: URINE BILIRUBIN NEGATIVE (Negative); URINE BLOOD 3+ (Negative); URINE CLARITY CLEAR; URINE COLOR YELLOW; URINE GLUCOSE-RANDOM* NEGATIVE (Negative); URINE KETONES NEGATIVE (Negative); URINE LEUKOCYTES-REFLEX NEGATIVE (Negative); URINE NITRITE-REFLEX NEGATIVE (Negative); URINE PROTEIN (DIPSTICK) 2+ (Negative); URINE SPECIFIC GRAVITY 1.025 (1.005-1.035); URINE UROBILINOGEN 0.2 E.U./dl (0.2-1.0)
[2021-04-29 12:38] LABS: ABSOLUTE NEUTROPHILS 4.6 thou/uL (1.4-8.2); BASOPHILS 0.5 % (0.0-2.0); EOSINOPHILS 4.5 % (0.0-3.0); HEMATOCRIT 36.5 % (42.0-52.0); HEMOGLOBIN 11.7 gm/dL (14.0-18.0); LYMPHOCYTES 15.8 % (24.0-44.0); MCH 27.3 pg (26.0-34.0); MCHC 32.2 g/dL (28.0-37.0); MONOCYTES 9.1 % (1.0-8.0); PLATELET COUNT 208 thou/uL (150-400); POLYS 70.1 % (36.0-66.0); RDW 15.3 % (10.5-14.5); WBC 6.6 thou/uL (4.0-11.0)
[2021-04-29 12:44] LABS: CALCIUM 9.6 mg/dL (8.5-10.1); CREATININE 0.9 mg/dL (0.7-1.3); POTASSIUM 3.1 mmol/L (3.5-5.1)
[2021-04-29 12:51] LABS: BACTERIA-REFLEX 1-9 Few /HPF (None Seen); CASTS None Seen /LPF (None Seen); CRYSTALS None Seen /LPF (None Seen); SQUAMOUS >10 Many /LPF (0-3); URINE RBC >20 Many /HPF (NONE SEEN); URINE WBC-REFLEX 0-5 Rare /HPF (0-5)
[2021-04-29 13:01] LABS: ALBUMIN 3.9 g/dL (3.4-5.0); TOTAL BILIRUBIN 1.5 mg/dL (0.2-1.0); TOTAL PROTEIN 6.7 g/dL (6.4-8.2)
[2021-04-29 13:32] LABS: APTT 24.7 Seconds (24.5-32.8); INR 1.1; PROTIME 11.6 Seconds (9.3-11.4)
[2021-04-29 14:57] LABS: URINE BILIRUBIN NEGATIVE (Negative); URINE BLOOD 3+ (Negative); URINE CLARITY CLOUDY; URINE COLOR RED; URINE GLUCOSE-RANDOM* NEGATIVE (Negative); URINE KETONES NEGATIVE (Negative); URINE LEUKOCYTES-REFLEX NEGATIVE (Negative); URINE NITRITE-REFLEX NEGATIVE (Negative); URINE PROTEIN (DIPSTICK) 1+ (Negative); URINE SPECIFIC GRAVITY 1.025 (1.005-1.035); URINE UROBILINOGEN 0.2 E.U./dl (0.2-1.0)
[2021-04-29 15:10] LABS: CASTS None Seen /LPF (None Seen); SQUAMOUS 0-3 Few /LPF (0-3)
[2021-04-29 15:11] LABS: CRYSTALS None Seen /LPF (None Seen); URINE RBC >20 Many /HPF (NONE SEEN); URINE WBC-REFLEX 6-15 Few /HPF (0-5)
[2021-04-29] MEDS ORDERED: RYBELSUS14 MG PO (16:18)
[2021-04-29] MEDS ORDERED: VITAMIN B12-FO1 EAC1 PO (16:18)
[2021-04-29] MEDS ORDERED: VITAMIN D310 MC4 PO (16:19)
[2021-04-29 21:10] VITALS: BP 155/69
[2021-04-29 22:20] VITALS: BP 204/95
[2021-04-30 00:09] VITALS: BP 183/90
[2021-04-30 04:23] VITALS: BP 154/92
[2021-04-30 06:37] LABS: HEMATOCRIT 30.8 % (42.0-52.0); HEMOGLOBIN 10.2 gm/dL (14.0-18.0); MCH 28.1 pg (26.0-34.0); MCHC 33.2 g/dL (28.0-37.0); MCV 84.5 fL (80.0-100.0); RBC 3.65 mil/uL (4.50-6.00); RDW 15.7 % (10.5-14.5); WBC 5.5 thou/uL (4.0-11.0)
--- NOTE | 2021-04-30 06:46 | NUR ---
ADMIT PT ADMITTED TO ROOM 359 FROM ED BEING ADMITTED WITH HEMATURIA. PT HAS HAD FREQUENT FALLS AT HOME. 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 SCATTERED BRUISING NOTED FROM FALLS AT HOME. PICTURES TAKEN WOUNDS CLEANSED AND OPTIFOAM APPLIED TO SACRUM AND LEFT HAND. ALL OTHERS MOISTURIZED AND LEFT OPEN TO AIR. PT VOIDED 300 CC'S OF BLOOD TINGED URINE. VSS. PT IMPULSIVE AND CONFUSED FALL PRECAUTIONS IN PLACE. ALL PERSONAL ITEMS AND CALL LIGHT IN REACH.
[2021-04-30 07:05] LABS: ALBUMIN 3.2 g/dL (3.4-5.0); CALCIUM 8.9 mg/dL (8.5-10.1); CREATININE 0.8 mg/dL (0.7-1.3); MAGNESIUM 1.4 mg/dL (1.8-2.4); PHOSPHORUS 2.8 mg/dL (2.6-4.7); TOTAL BILIRUBIN 1.3 mg/dL (0.2-1.0); TOTAL PROTEIN 5.6 g/dL (6.4-8.2)
--- NOTE | 2021-04-30 07:12 | EKG ---
[address] [address] ELECTROCARDIOGRAM REPORT Name: MELISA WATERS Room #: 359-P ADM IN M.R.#: [id number] Admission: 04/29/21 Attend Phys: Karl Aguilar MD Discharge: Date of : 45 Report #: [id number] [facility] ED Test Date: 2021-04-29 Test Time: 12:34:37 Pat Name: MELISA WATERS Department: Room: 359 Gender: M Running Instructor: : 1945 Requested By: Flor Ramesh Order Number: [id number] MD: Noah Bourne Measurements Intervals [place] Rate: 68 P: -69 ID: [id number] QRS: -24 QRSD: 100 T: 60 QT: 422 QTc: 449 Interpretive Statements AFIB Borderline left axis deviation Compared to ECG 11/12/2014 08:59:21 No significant change Electronically Signed On 04-30-2021 7:12:39 CONTINUOUS IMPROVEMENT DIRECTOR by Noah Bourne [email or web address] <ELECTRONICALLY SIGNED> By: Noah Bourne MD, [facility] 04/30/21 0712 1234 1234 Noah Bourne MD, FACC /EPI
[2021-04-30 07:34] LABS: FOLIC ACID 6.3 ng/mL (8.6-58.9)
[2021-04-30 07:36] VITALS: BP 156/60
[2021-04-30 10:18] LABS: ALBUMIN 3.2 g/dL (3.4-5.0); DIRECT BILIRUBIN 0.2 mg/dL (<0.1-0.2); TOTAL BILIRUBIN 1.3 mg/dL (0.2-1.0); TOTAL PROTEIN 5.7 g/dL (6.4-8.2)
--- NOTE | 2021-04-30 11:41 | NUR ---
Nutrition: pt admitted with hematuria, acute cystitis. Wound care consult pending for left hand skin tears, sacral pressure ulcer and lower leg erythema per nsg. Some confusion noted. Pt unsure of any weight changes. Current BMI 32, obesity class 1. States appetite is fine. RD reviewed protein sources for wound healing and pt likes these foods. Became irritated with RD questions. No BG to evaluate. Hx DM. Current K+ and Mg++ low-needs replacement. On lasix. Folate level 6.3. RECommend folate suppplementation. RD will offer ensure max daily until further po trends identified. Low risk with intervention in place.
--- NOTE | 2021-04-30 11:45 | NUR ---
Nutrition: Folate 6.3, deficency noted. RECommend order supplementation.
[2021-04-30 12:05] VITALS: BP 165/69
[2021-04-30 12:06] VITALS: BP 156/84
--- NOTE | 2021-04-30 15:31 | NUR ---
INITIAL ASSESSMENT: Received consult. SW reviewed chart and spoke with nursing and attending physician. Pt was admitted from home due to UTI/hematuria. Urology consulted. Psych, wound care and [facility] also consulted. Pt is on IV abx. Pt was off the unit having abodminal CT during SW visit. SW left HH and SNF list with SW's contact info at pt's bedside for review. SW spoke with pt's dtr, Amada, via phone. Introduced role of SW. Pt lives at home with his ex-girlfriend, who has severe COPD and is oxygen dependent. Pt with hx of frequent falls. Pt resides on the main level of their home and uses a BSC, as there is not a bathroom on the main level. There are 6 steps up to the second level per pt's dtr. Pt refuses to use the steps. Pt goes to Dr. Ruiz for outpatient wound care. Pt's PCP is Dr. Chemo Cline. Pt's dtr states that family has talked with pt about moving into an AL facility for additional care. Pt has refused. Pt is currently on service with a HH agency. Pt's dtr is unsure name of current HH provider. Pt has been fired from several HH agencies. Pt has been to [facility] in the past. Pt's dtr is interested in post-acute care. SW explained admission criteria for [facility]. Notified pt's dtr that SNF and HH lists were left in pt's room. Pt's son will be at the hospital later today. No weekend discharge planned. RENE discussed case with [facility] rehab tech. SW is following to assist as needed with discharge planning.
--- NOTE | 2021-04-30 18:43 | NUR ---
RN ASSUMED PT'S CARE AT 0700AM, PT IS A&OX2( PERSON AND PLACE), PT IS CONFUSED AT TIME, PT CAN FOLLOW COMMANDS, PT IS ON ROOM AIR , PT'S VS ARE STABLE, PT IS CONTINUING IV ABX AND WOUND CARE , PT IS HIGH FALL RISK, PT'S CHIAR ALARM AND BED ALARM ARE ON, PT DNEIES PAIN AT DAY SHIFT.
[2021-05-01 02:06] LABS: GLYCOHEMOGLOBIN (HGB A1C) 6.7 % (4.8-5.6)
[2021-05-01 04:30] VITALS: BP 171/90
[2021-05-01 05:37] LABS: ABSOLUTE NEUTROPHILS 2.6 thou/uL (1.4-8.2); BASOPHILS 1.2 % (0.0-2.0); EOSINOPHILS 6.1 % (0.0-3.0); HEMATOCRIT 31.3 % (42.0-52.0); HEMOGLOBIN 10.1 gm/dL (14.0-18.0); LYMPHOCYTES 26.6 % (24.0-44.0); MCH 27.5 pg (26.0-34.0); MCHC 32.4 g/dL (28.0-37.0); MONOCYTES 12.4 % (1.0-8.0); PLATELET COUNT 188 thou/uL (150-400); POLYS 53.7 % (36.0-66.0); RBC 3.68 mil/uL (4.50-6.00); RDW 15.8 % (10.5-14.5); WBC 4.8 thou/uL (4.0-11.0)
[2021-05-01 06:00] LABS: ALBUMIN 3.1 g/dL (3.4-5.0); CALCIUM 8.9 mg/dL (8.5-10.1); CREATININE 0.8 mg/dL (0.7-1.3); MAGNESIUM 1.5 mg/dL (1.8-2.4); PHOSPHORUS 2.8 mg/dL (2.5-4.9); TOTAL BILIRUBIN 1.3 mg/dL (0.2-1.0); TOTAL PROTEIN 5.8 g/dL (6.4-8.2)
[2021-05-01 06:17] LABS: POTASSIUM 2.7 mmol/L (3.5-5.1)
[2021-05-01 07:04] VITALS: BP 175/89
[2021-05-01 11:02] VITALS: BP 172/95
[2021-05-01 15:12] LABS: URINE BILIRUBIN NEGATIVE (Negative); URINE BLOOD TRACE (Negative); URINE CLARITY CLEAR; URINE COLOR YELLOW; URINE GLUCOSE-RANDOM* NEGATIVE (Negative); URINE KETONES NEGATIVE (Negative); URINE LEUKOCYTES-REFLEX NEGATIVE (Negative); URINE NITRITE-REFLEX NEGATIVE (Negative); URINE PROTEIN (DIPSTICK) NEGATIVE (Negative); URINE UROBILINOGEN 0.2 E.U./dl (0.2-1.0)
[2021-05-01 15:56] VITALS: BP 193/95
[2021-05-01 17:30] VITALS: BP 163/70
--- NOTE | 2021-05-01 18:57 | NUR ---
PROGRESS SHIFT NOTE FOR 05/01/21 0630AM PT ALERT BUT CONFUSED AND IMPULSIVE. IRRITABLE WITH STAFF AT TIMES. VOIDING PER URINAL AND THEN INCONTINENT AT TIMES. ACCUCHECKS CONTINUE.FALL PRECAUTIONS IN PLACE FREQUENT MONITORING CONTINUE POC.
--- NOTE | 2021-05-01 19:47 | NUR ---
RN ASSUMED PT'S CARE AT 0700-1900PM, PT KNOWS HIS NAME AND HIS FAMILY, BUT PT IS CONFUSED AND AGITATION AT TIME, RN HAS REPORTED TO DR ABOUT PT IS MORE CONFUSED TODAY, NEW ORDER HAS RECEIVED, PT STARTS BOTH WRIST SOFT RESTRAINT AT 1650PM , BECAUSE PT TAKES OFF HIS IV LINE AND HE TRY TO GET OUT HIS BED , PT HAS NEW JAMIL CATHETER TODAY, PT IS HIGH FALL RISK , RN HAS REPORTED TO NEXT SHIFT TO KEEP EYE ON PT.
[2021-05-01 20:00] VITALS: BP 194/99
[2021-05-01 22:12] LABS: CALCIUM 8.9 mg/dL (8.5-10.1); CREATININE 0.8 mg/dL (0.7-1.3); POTASSIUM 3.9 mmol/L (3.5-5.1)
[2021-05-02 00:29] VITALS: BP 186/91
[2021-05-02 05:26] LABS: BASOPHILS 0.8 % (0.0-2.0); EOSINOPHILS 3.9 % (0.0-3.0); HEMATOCRIT 31.5 % (42.0-52.0); HEMOGLOBIN 10.6 gm/dL (14.0-18.0); LYMPHOCYTES 15.6 % (24.0-44.0); MCH 28.3 pg (26.0-34.0); MCHC 33.6 g/dL (28.0-37.0); MCV 84.2 fL (80.0-100.0); MONOCYTES 9.1 % (1.0-8.0); PLATELET COUNT 210 thou/uL (150-400); POLYS 70.6 % (36.0-66.0); RBC 3.74 mil/uL (4.50-6.00); RDW 15.9 % (10.5-14.5); WBC 5.7 thou/uL (4.0-11.0)
[2021-05-02 05:40] LABS: ALBUMIN 3.1 g/dL (3.4-5.0); CREATININE 0.7 mg/dL (0.7-1.3); MAGNESIUM 1.9 mg/dL (1.8-2.4); PHOSPHORUS 2.5 mg/dL (2.6-4.7); POTASSIUM 3.6 mmol/L (3.5-5.1); TOTAL PROTEIN 5.9 g/dL (6.4-8.2)
--- NOTE | 2021-05-02 06:32 | NUR ---
PROGRESS PT ALERT ORIENTED TO SELF, SITUATION. BUT REMAINS CONFUSED, IRRITABLE AND UNCOOPERATIVE. SOFT WRIST RESTRAINTS IN PLACE REMOVED Q2HRS AND SKIN CIRCULATION ASSESSED AND PT OFFERED LIQUIDS, FOOD AND REPOSITIONED. VSS. BP HIGH BUT IS DECREASING WITH SCHEDULED HYDRALAZINE. SCHEDULED HALDOL EFFECTIVE PT SLEEPING AND MORE COOPERATIVE. IVF'S INFUSING ORDERED, JAMIL IN PLACE DRAINING SUMA COLORED URINE. DRESSINGS REMAIN C/D/I. CONTINUE POC.
[2021-05-02 07:38] VITALS: BP 126/68
[2021-05-02 11:20] VITALS: BP 117/67
--- NOTE | 2021-05-02 14:44 | NUR ---
TOOK OVER CARE FOR THIS PATIENT AT 1200. REPORT RECEIVED FROM PREVIOUS NURSE IN ROOM. FAMILY PRESENT AT THIS TIME. PATIENT RESTING IN RECLINER COMFORTABLY SLEEPING. PATIENT COMPLAINT OF BACK PAIN AT THIS TIME; ADMINISTERED PRN PAIN MEDICATION. PARTIAL PAIN RELIEF OBTAINED. COMPLETED PATIENT'S WOUND CARE AND NEW DRESSINGS APPLIED. CT OF SPINE WITH OUT CONTRAST OBTAINED THIS AFTERNOON. PATIENT TOLERATED PROCEDURE WELL. PATIENT BACK IN ROOM RESTING IN CHAIR.
[2021-05-02 15:46] VITALS: BP 134/70
[2021-05-02 20:20] VITALS: BP 119/70
[2021-05-03 01:55] VITALS: BP 145/77
[2021-05-03 04:06] VITALS: BP 162/80
[2021-05-03 05:26] LABS: ABSOLUTE NEUTROPHILS 2.9 thou/uL (1.4-8.2); BASOPHILS 0.9 % (0.0-2.0); EOSINOPHILS 4.7 % (0.0-3.0); HEMATOCRIT 34.3 % (42.0-52.0); LYMPHOCYTES 22.4 % (24.0-44.0); MCH 27.6 pg (26.0-34.0); MCV 86.5 fL (80.0-100.0); MONOCYTES 12.1 % (1.0-8.0); PLATELET COUNT 228 thou/uL (150-400); POLYS 59.9 % (36.0-66.0); RBC 3.97 mil/uL (4.50-6.00); RDW 16.4 % (10.5-14.5); WBC 4.9 thou/uL (4.0-11.0)
[2021-05-03 05:40] LABS: ALBUMIN 3.3 g/dL (3.4-5.0); CALCIUM 9.6 mg/dL (8.5-10.1); MAGNESIUM 2.1 mg/dL (1.8-2.4); PHOSPHORUS 3.1 mg/dL (2.6-4.7); POTASSIUM 4.3 mmol/L (3.5-5.1); TOTAL BILIRUBIN 1.9 mg/dL (0.2-1.0); TOTAL PROTEIN 6.5 g/dL (6.4-8.2)
[2021-05-03 07:25] VITALS: BP 137/70
--- NOTE | 2021-05-03 07:26 | NUR ---
progress pt a/o x 2 to 3 but confused and impulsive at times. up with max of 2 with gb and walker pivot transfer. pt in bed davison in place iv in lf infusing ns w 20kcl at 30cc/hr. npo after midnight for possible cholecystectomy. vss continue poc.
[2021-05-03] MEDS ORDERED: FLOMAX0.4 MG PO (13:17)
[2021-05-03] MEDS ORDERED: CEFUROXIME500 MG PO (13:21)
--- NOTE | 2021-05-03 13:40 | NUR ---
PROGRESSING TOWARDS POC GOLAS. DC TO HOME.
--- NOTE | 2021-05-03 13:50 | NUR ---
CONSULT [id number] WAS ATTEMPTED TO BE COMPLETED BY THIS PIPE STEM REPAIRER. PT WAS UNWILLING TO COMPLETE DPOA FROM AT THIS TIME. HE DID SAY THEY ALREADY HELP HIM WITH EVERYTHING NOW.
--- NOTE | 2021-05-03 15:14 | NUR ---
DISCHARGE NOTE: RENE reviewed chart and spoke with nursing and attending physician. Pt is medically stable for discharge today. RENE discussed case with [facility] director of rehabilitation and wellness who states they are able to accept pt today. RENE spoke with pt's dtr, Amada, via phone to provide update and notify of [facility]'s acceptance and is agreeable with plan. RENE informed Amada that rehab CM will follow up regarding discharge plan. Pt to move to 5 later today. Rehab CM to follow and assist as needed with discharge planning.
--- NOTE | 2021-05-03 18:18 | NUR ---
ASSUMED PATIENT CARE AT 0700. ALERT. CONFUSED AND ANGRE. UP WITH ASSISTED WALK IN ROOM. REFUSED WOUND CRAE. ALSO REFUSED WOUND CARE TEAM TO CHECK ON HIS LEGS. COVID 19 NEGATIVE. WILL DC TO [facility] AFTER SHIFT CHANGE.
[2021-05-03 19:40] VITALS: BP 141/90
== END 2021-05-03 20:12 | DRG 689 ==
LOC: ER 11:40 → 3W 16:05 → EROBS 16:05 → 3W 22:20
PROVIDERS: Internal Medicine; Nurse Practitioner Family; Physician Assistant; ADMIT Internal Medicine; ATTEND Internal Medicine
DX: N30.01 Acute cystitis with hematuria (principal); G93.41 Metabolic encephalopathy; E44.1 Mild protein-calorie malnutrition; N40.0 Benign prostatic hyperplasia without lower urinary tract symptoms; I50.9 Heart failure, unspecified; I25.10 Atherosclerotic heart disease of native coronary artery without angina pectoris; R33.8 Other retention of urine; N40.1 Benign prostatic hyperplasia with lower urinary tract symptoms; J44.9 Chronic obstructive pulmonary disease, unspecified; I11.0 Hypertensive heart disease with heart failure; R29.6 Repeated falls; E87.6 Hypokalemia; G31.84 Mild cognitive impairment of uncertain or unknown etiology; I48.0 Paroxysmal atrial fibrillation; E78.5 Hyperlipidemia, unspecified; K21.9 Gastro-esophageal reflux disease without esophagitis; K80.20 Calculus of gallbladder without cholecystitis without obstruction; F17.210 Nicotine dependence, cigarettes, uncomplicated; M19.90 Unspecified osteoarthritis, unspecified site; E66.9 Obesity, unspecified; D64.9 Anemia, unspecified; S09.90XA Unspecified injury of head, initial encounter; E11.42 Type 2 diabetes mellitus with diabetic polyneuropathy; I89.0 Lymphedema, not elsewhere classified; I49.5 Sick sinus syndrome; R79.1 Abnormal coagulation profile; R53.81 Other malaise; R26.9 Unspecified abnormalities of gait and mobility; I87.2 Venous insufficiency (chronic) (peripheral); E87.70 Fluid overload, unspecified; K59.00 Constipation, unspecified; E80.6 Other disorders of bilirubin metabolism; W18.30XA Fall on same level, unspecified, initial encounter; E83.42 Hypomagnesemia; L98.429 Non-pressure chronic ulcer of back with unspecified severity; S61.412A Laceration without foreign body of left hand, initial encounter; E78.00 Pure hypercholesterolemia, unspecified; Z96.651 Presence of right artificial knee joint; Z20.822 Contact with and (suspected) exposure to COVID-19; Z79.899 Other long term (current) drug therapy; Z95.5 Presence of coronary angioplasty implant and graft; Z71.6 Tobacco abuse counseling; Z68.32 Body mass index [BMI] 32.0-32.9, adult; Y93.89 Activity, other specified; Y99.8 Other external cause status; Y92.89 Other specified places as the place of occurrence of the external cause
CPT/HCPCS: 10879

== ENCOUNTER 2021-05-03 13:29 | Inpatient (IN) | payer OTHER, MEDICARE ==
[~2021-05-03] VITALS: Ht 185.4 cm; Wt 103.0 kg
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
[~2021-05-03 13:29] MED LIST changes: +CEFUROXIME500 MG PO; +FLOMAX0.4 MG PO; +RYBELSUS14 MG PO; +VITAMIN B12-FO1 EAC1 PO; +VITAMIN D310 MC4 PO
[2021-05-03 19:40] VITALS: BP 141/90
--- NOTE | 2021-05-03 21:44 | NUR ---
PT WAS D/C FROM [facility] TODAY AT APPROX 2044. PT TRANSFERRED TO [address] [place] [address] AND REPORT WAS GIVEN ALIN.
--- NOTE | 2021-05-03 23:58 | NUR ---
pt arrived to unit approx 2100 via w/c from [facility]. pt assisted into bed. shortly after arriving pt became uncooperative, agitated, confused, impulsive. pt trying to crawl out of bed repeatedly, pulling on davison catheter, restless, yelling at staff. Security paged and came up and stayed with pt for long period of time. BLANCHING MACHINE OPERATOR paged Aleshia and order recd for IM Zyprexa, given approx 2227 and pt still wide awake and uncooperative. son and daughter called and left voicemail message with both. no call back yet. BLANCHING MACHINE OPERATOR paged again and also Game Manager notified. no new orders as of yet. PROJECT ADMINISTRATIVE ASSISTANT sitting with pt at present. pt wide awake, sometimes yells out, seems tired, groggy at times but then awake. pt keeps trying to crawl out of bed at times. bed alarm on. staff with pt at present. will continue to monitor.
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
--- NOTE | 2021-05-04 06:17 | NUR ---
AFTER JAMIL DCD PT SEEMED TO SETTLE DOWN QUITE A LOT. PT AWAKE FIDGETING IN BED FOR SHORT TIME AFTER JAMIL DCD AND THEN FELL ASLEEP. PT HAS BEEN SLEEPING SOUNDLY SINCE APPROX 0200. ORDER FOR HALDOL IM NOT GIVEN NOT NEEDED SINCE PT SLEEPING. AIDE WITH PT AT BEDSIDE MOST OF THE NIGHT. BED ALARM ON AND CALL LIGHT IN REACH. WILL CONTINUE TO MONITOR.
[2021-05-04 07:18] LABS: HEMATOCRIT 33.3 % (42.0-52.0); HEMOGLOBIN 10.6 gm/dL (14.0-18.0); MCH 27.6 pg (26.0-34.0); MCHC 31.8 g/dL (28.0-37.0); MCV 86.9 fL (80.0-100.0); RBC 3.83 mil/uL (4.50-6.00); RDW 16.5 % (10.5-14.5); WBC 5.4 thou/uL (4.0-11.0)
[2021-05-04 07:25] LABS: CALCIUM 9.5 mg/dL (8.5-10.1); CREATININE 0.8 mg/dL (0.7-1.3); POTASSIUM 3.5 mmol/L (3.5-5.1)
--- NOTE | 2021-05-04 11:18 | NUR ---
ASSUMED CARE OF PT AT 0700. PT UNHAPPY, REFUSING CARES. PT WILL NOT LET THIS NURSE CHANGE BEDDING OR CLOTHING EVEN THOUGH BOTH ARE URINE SOAKED. PT STATES HE WANTS TO BE LEFT ALONE AND THAT HE DID NOT AGREE TO ANY OF THIS. PT REFUSED BREAKFAST. PT IS CURSING AND IS VERY [place] WITH REFUSALS OF HELP. PT DOES NOT WANT TO STAY IN BED OR GET INTO THE CHAIR. WILL CONTINUE TO MONITOR.
--- NOTE | 2021-05-04 13:04 | NUR ---
Team meeting, recommendation: Elgin Solomon this am and cm unable to visit with him prior to team. Cognitive deficits and poor insight. Wounds on legs and wrapped with bianca wraps. BPCI.
--- NOTE | 2021-05-04 16:56 | NUR ---
75 yr old male admitted to hospital on 04/29/21 with falls and hematuria. he hit his head with one of the falls, CT head no acute process but with diffuse cerebral atrophy. he was found to have UTI and started on abx. urology consulted. they have recommended outpt follow up, his PVR are 0 ml. davison was initially placed but was removed overnight after pt pulling on tubing causing hematuria. pt lives at home with his ex-girlfriend who has her own medical needs, He stays on the main level with no bathroom. He has BSC. He unable to visit with cm. BPCI. Cm spoke with his daughter kiet. She was going over help him with 6 steps to get him to and from wound care, he used to be able to do those but now on hh with ave. Dad has always worked in groceries and he would be up all night and sleep all day even when she was child per Kiet. Will cont following as needed.
--- NOTE | 2021-05-04 17:39 | NUR ---
PT WAS MORE COOPERATIVE THIS AFTERNOON, PT WAS AGREEABLE TO HAVING BG CHECKED AND BP TAKEN. PT TOOK PILLS AT DINNER. WILL CONTINUE TO MONITOR.
--- NOTE | 2021-05-04 18:57 | NUR ---
THIS NURSE GAVE PT ROYALS RING TO DAUGHTER WHILE IN HALLWAY. THIS NURSE WATCHED DAUGHTER PUT RING IN HER BLACK PURSE.
[2021-05-04 19:47] VITALS: BP 147/84
--- NOTE | 2021-05-05 03:10 | NUR ---
assumed care approx 1900 evening 05/04. pt sitting up in w/c in dining room at change of shift. pt incontinent of large, loose bm after assist into bed. assist with changing of pad. pt less confused that last night and more cooperative. lower legs wrapped with dressings intact. pt did take hs med willingly and appears to be sleeping soundly this night. bed alarm on and call light in reach. will continue to monitor.
[2021-05-05 08:00] VITALS: BP 151/64
--- NOTE | 2021-05-05 10:35 | NUR ---
Received phone call from pcp Dr Burnett office, they requested to get updates on ameya after team meetings. CM provided verbal update to his nurse Izzy. Her direct # [phone], to provide weekly updates.
--- NOTE | 2021-05-05 13:58 | H ---
[facility] [place] [address] HISTORY AND PHYSICAL Name: MELISA WATERS Room #: 515-P ADM IN M.R.#: [id number] Admission: 05/03/21 Attend Phys: Efraín Guevara MD Discharge: Date of : 45 Report #: [id number] THIS REPORT FOR: cc: Gonsalo Cline MD, Steven A. MD Smithson,Efraín Styles MD ~ DATE OF SERVICE: 05/03/2021 HISTORY OF PRESENT ILLNESS: This is a 75-year-old male originally admitted to [facility] on 04/29/2021 with falls and hematuria. He stated he hit his head with one of the falls. CT of the head showed no acute process, but he was noted to have diffuse cerebral atrophy. He was found to have a urinary tract infection. Urology was consulted. He had an MRCP, which revealed choledocholithiasis. Wound care was involved for bilateral lower extremity chronic venous stasis. Cardiology was consulted to see if needed surgical cholecystectomy. Eliquis was placed on hold. He has history of atrial fibrillation and PE, post op knee. He is admitted for acute in-hospital inpatient rehabilitation. PAST MEDICAL HISTORY: Well documented in the documentation HABITS: Noted to be a current every day smoker. ALLERGIES: No known drug allergies. MEDICATIONS: See the MAR. SOCIAL HISTORY: Living at home with his girlfriend who apparently has her own medical needs and is on oxygen. There are 5 steps in. Apparently was not supposed to be driving, but was still driving. He has a history of falls. Family was noted to have concerns regarding him living with his girlfriend any longer and they had noticed cognitive and physical decline over the past 6 months. REVIEW OF SYSTEMS: Please see the full 14-point review of systems. PHYSICAL EXAMINATION: GENERAL: He was rather groggy, had been given Haldol, but was responsive, in no obvious distress. HEENT: Normocephalic. NECK: No lymphadenopathy. LUNGS: Sounded clear, maybe some decrease at the bases. CARDIAC: Regular rate and rhythm. ABDOMEN: Bowel sounds positive, nontender. EXTREMITIES: No focal calf swelling. Strength is probably a grade 3+/5 to 4-/5. It was difficult to actually objectify. He has been max assist coming to [facility] [address] [place] [address] HISTORY AND PHYSICAL Name: MELISA WATERS Room #: 515-P [facility] IN M.R.#: [id number] Admission: 05/03/21 Attend Phys: Efraín Guevara MD Discharge: Date of : 45 Report #: [id number] stand. ASSESSMENT: A 75-year-old white male with the following problem list: 1. Fall with closed head injury. 2. Gait instability with recurrent falls. 3. Peripheral neuropathy. 4. Urinary tract infection with hematuria. 5. Suspected underlying cognitive impairment with dementia. 6. History of atrial fibrillation. 7. Diabetes mellitus type 2. 8. Tobacco abuse. PLAN: The patient has been admitted for acute in-hospital inpatient rehabilitation. Please see the patient's previous and current functional status. As far as risk of complications, he does have the multiple medical comorbidities as noted above. Measurable functional goals would be for the patient to become modified independent with transfers, mobility and ADLs as well as improved cognition, so he can hopefully return back to his prior living situation. Prognosis is reasonably good with estimated length of stay probably at least 14 days. Potential barriers would include his multiple medical comorbidities. The patient meets diagnostic criteria for an acute in-hospital inpatient rehabilitation stay. He meets the medical necessity criteria and we will have the multiple senior telecommunications consultant physicians continue to follow. He said the hospitalist service involved Urology, Cardiology as well as having psychology involved while he is on the rehabilitation price. The Eliquis was apparently on hold due to his hematuria and he was noted to be voiding with a 0 PVR. He does have a history of atrial fibrillation, diabetes mellitus type 2 and tobacco abuse. He does have the tolerance for therapies and has appropriate discharge goals back to the home setting. <ELECTRONICALLY SIGNED> By: Efraín Guevara MD 05/05/21 1358 1416 1438 Efraín Guevara MD /nt
--- NOTE | 2021-05-05 16:29 | NUR ---
PVR=15O @1616
--- NOTE | 2021-05-05 17:31 | NUR ---
Assumed pt care at shift change, bedside report received, pt found in bed awake, no concern voiced, A/0 x 3( person, palce, situation), assessed as charted, labs reviewed, pt appeared calm , cooperative, follow commands, LE wrapped, dressing changed as per nickir, redness and edma( +2) noted in both LL., afebrile VSS, meds given with water, adequate appetite, all safety precautions in place. voids about 200 cc in 3 occasions, bladder scanned per order, 150 cc PVR, 1 BM-incontinent, Will cont ' current plan.
[2021-05-05 20:00] VITALS: BP 149/79
[2021-05-06 00:33] LABS: URINE BILIRUBIN NEGATIVE (Negative); URINE BLOOD 1+ (Negative); URINE CLARITY CLEAR; URINE COLOR YELLOW; URINE GLUCOSE-RANDOM* NEGATIVE (Negative); URINE KETONES TRACE (Negative); URINE LEUKOCYTES NEGATIVE (Negative); URINE NITRITE NEGATIVE (Negative); URINE PROTEIN (DIPSTICK) NEGATIVE (Negative); URINE SPECIFIC GRAVITY >= 1.030 (1.005-1.035)
[2021-05-06 01:29] LABS: BACTERIA 1-9 Few /HPF (None Seen); CRYSTALS None Seen /LPF (None Seen); HYALINE CASTS 4-10 Moderate /LPF (None Seen); MUCUS 4-6 Moderate strn/LPF (None Seen); SQUAMOUS 4-10 Moderate /LPF (0-3); URINE WBC 1-5 Rare /HPF (NONE SEEN)
--- NOTE | 2021-05-06 05:06 | NUR ---
ASSUMED CARE AT 1915 OF 05/05. PATIENT IS A&O TO PERSON AND SITUATION, IMPULSIVE AND REQUIRES REMINDER TO USE CALL LIGHT. BLE DRESSINGS REAPPLIED THIS SHIFT. PATIENT DENIES PAIN WHEN VOIDING. VOIDED AT 2300, PVR WAS 40CC, AND URINE SAMPLE WAS SENT DOWN TO LAB. PATIENT HAD AN EPISODE OF BLADDER INCONTINENCE THIS MORNING. INCONTINENCE PAD CHANGED AND NEW BRIEF APPLIED. PATIENT REPORTED HE DID NOT FEEL URGE TO VOID ANYMORE POST INCONTINENCE EPISODE AT 0500, PVR WAS 35CC. FALL PRECAUTIONS IN PLACE, CALL LIGHT WITHIN REACH. FREQUENT OBSERVATION IMPLEMENTED, WILL CONTINUE TO MONITOR.
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
[2021-05-06 10:44] VITALS: BP 181/104
--- NOTE | 2021-05-06 13:36 | NUR ---
PT'S FAMILY IN TO SEE HIM, BUT HE WAS RESTING IN THE BED AFTER THE GEODON. PT REMAINS IN BED ASLEEP AT PRESENT TIME.
[2021-05-06 13:56] VITALS: BP 162/64
[2021-05-06] MEDS ORDERED: FLOMAX0.4 MG PO (14:09)
[2021-05-06] MEDS ORDERED: PEPCID20 MG PO (14:09)
[2021-05-06] MEDS ORDERED: FOLIC ACID1 MG PO (14:09)
[2021-05-06 14:44] VITALS: BP 150/86
--- NOTE | 2021-05-06 15:12 | NUR ---
1430: PT WAS AWAKENED FOR PORTABLE XRAY OF HIS RIGHT HIP. FOLLOWING THIS, PT ATTEMPTING TO GET OUT OF BED, BUT REFUSING ASSIST TO KEEP HIM SAFE. PT INCONTINENT OF BM, AND AFTER THIS, CALMED. RN AND PORTFOLIO MGR ABLE TO ASSIST WITH BED CHANGE, AND PT REQUESTED TO GET OOB. RN ASSISTED PT TO WC AND PT AGREED TO EAT AND DRINK, AND SAT IN DAYROOM. HE AGAIN VOIDED INCONT AND WAS ASSISTED WITH HYGEINE, THEN BACK TO THERAPY GYM WITH PHYSICAL THERAPIST. MOOD IS MUCH IMPROVED THIS AFTERNOON, AND PT REMAINS CONFUSED, BUT FOLLOWS SIMPLE COMMANDS. REPORT GIVEN TO CHITRA TEAGUE, AND WILL CONTINUE TO SUPPORT. BP RECHECKED, PT SPIT OUT HIS AM MEDS AND HTN NOTED. BP 150/82 NOTED TO [facility] AND WILL WAIT TO TREAT UNTIL EVENING MED PASS PER HER OK.
--- NOTE | 2021-05-06 17:12 | NUR ---
MESSAGE EARLIER LEFT WITH PT'S SON BUT UNABLE TO CONNECT BY PHONE. MESSAGE LEFT WITH DAUGHTER WELL, AND AWAITING A CALL BACK REGARDING UPDATING FAMILY THAT PT REMAINS ON THE UNIT AND BEHAVIOR ISSUES HAVE IMPROVED THIS AFTERNOON WITH NO CURRENT PLAN TO DC TO [facility] AT THIS TIME.
[2021-05-06 20:09] VITALS: BP 156/64
--- NOTE | 2021-05-07 00:01 | NUR ---
ASSUMED CARE OF PT AT 1915 ON 05/06/21. PT IS A&O TO SELF. IS ON ROOM AIR. IS STABLE. DENIES PAIN. IS UP WITH 2 ASSIST, GB, STAND PIVOT TO CHAIR. FALL PRECAUTIONS & HOURLY ROUNDING CONTINUED THIS SHIFT. LABS & VITALS REVIEWED. BRUISING NOTED TO RIGHT HIP. PT HAS SOME SKIN TAGS & SCALY SKIN. PT HAS BROWN, CRUSTY SKIN LESION ON THE RIGHT NECK. PT STATED, "DON'T WORRY WITH THAT, THAT'S BEEN THERE A LONG TIME". PT IS CURRENLTY ASLEEP. CALL LITHR WITHIN REACH. IS ABLE TO TURN SELF IN BED. WILL CONTINUE TO MONITOR.
[2021-05-07 04:57] LABS: CREATININE 0.8 mg/dL (0.7-1.3); POTASSIUM 3.9 mmol/L (3.5-5.1)
[2021-05-07 05:03] LABS: HEMATOCRIT 35.1 % (42.0-52.0); HEMOGLOBIN 11.6 gm/dL (14.0-18.0); MCH 28.8 pg (26.0-34.0); MCHC 33.1 g/dL (28.0-37.0); MCV 86.9 fL (80.0-100.0); RBC 4.04 mil/uL (4.50-6.00); RDW 16.7 % (10.5-14.5); WBC 6.6 thou/uL (4.0-11.0)
--- NOTE | 2021-05-07 05:40 | NUR ---
UPON COMPLETING HOURLY ROUNDS AT APROXIMATELY 0130/0200. THE PT WAS DANGLING GRAEME DAWSON ON THE SIDE OF THE BED & HAD SLID SELF DOWN TO THE MIDDLE OF THE BED. WHILE COMMUNICATING WITH THE PT THAT WE THE SOLE TRIMMER & I WERE GOING TO GET HIM BACK IN BED PT STATED, "JUST PUT MY LEGS BACK IN THE BED!". THIS NURSE ATTEMPTED TO EXPLAIN TO PT THAT IT WAS NOT POSSIBLE WITHOUT THE SOLE TRIMMER ASSISTING WITH BOOSTING HIM UP IN THE BED. WHEN THE SOLE TRIMMER & THIS NURSE ATTEMPTED TO DO SO, THE PT BECAME COMBATIVE & MADE GESTURES WITH HIS HANDS IF ATTMEPTING TO HIT THE SOLE TRIMMER OR MYSELF. THIS NURSE USED THERAPUETIC COMMUNICATION TO ASSIST THE PT, BUT HE BECAME VERY AGITATED. SECURITY WAS CALLED TO ASSIST THE PT IN THE BED. PT WAS MORE COMPLIANT WITH THE TWO OFFICERS, BUT WAS STILL AGITATED. THERAPUETIC COMMUNICATION WAS USED CONTINUALLY. PT HAD, HAD AN INCONTINENT EPISODE, BUT ALLOWED MYSELF & THE SOLE TRIMMER TO CLEAN IN UP. PT IS CURRENTLY STABLE & SLEEPING. CALL LIGHT IS WITHIN REACH. HOURLY ROUNDING CONTINUED. WILL CONTINUE TO MONITOR.
[2021-05-07 11:50] LABS: URINE BILIRUBIN NEGATIVE (Negative); URINE BLOOD NEGATIVE (Negative); URINE CLARITY CLEAR; URINE COLOR YELLOW; URINE GLUCOSE-RANDOM* NEGATIVE (Negative); URINE KETONES TRACE (Negative); URINE LEUKOCYTES NEGATIVE (Negative); URINE NITRITE NEGATIVE (Negative); URINE PROTEIN (DIPSTICK) TRACE (Negative); URINE SPECIFIC GRAVITY >= 1.030 (1.005-1.035)
--- NOTE | 2021-05-07 12:28 | NUR ---
Clarification that his prior home health is with [facility]. BPCI. Cont following as needed for dc needs.
--- NOTE | 2021-05-07 12:43 | NUR ---
PT RESTED QUIETLY IN BED UNTIL ABOUT [id number] TODAY. PT IRRITABLE AND ANGRY. PT INCONTINENT OF URINE. PT PILLS WERE GIVEN AND PT LIKES TO LET PILLS DISSOLVE IN MOUTH. PT THEN DRINKS WATER AND NOT ALL PILLS GET SWALLOWED AND END UP BACK IN THE WATER. THIS NURSE WILL CRUSH PILLS AND PUT THEM IN APPLESAUCE. WILL CONTINUE TO MONITOR
[2021-05-07 20:00] VITALS: BP 175/84
--- NOTE | 2021-05-08 01:45 | NUR ---
assumed care approx 1900 evening 05/07. pt assisted to bsc at change of shift by day RN and back to bed. pt somewhat fussy and irritable however settled down and did take hs meds. pt appears to be sleeping soundly. bed alarm on and call light in reach. will continue to monitor.
[2021-05-08 11:48] VITALS: BP 166/80
[2021-05-08 14:10] VITALS: BP 168/78
[2021-05-08 19:59] VITALS: BP 121/78
--- NOTE | 2021-05-09 04:52 | NUR ---
ASSUMED CARE AT 1915 OF 05/08. PATIENT IS A&O TO SELF AND CONFUSED. IMPULSIVE BUT NOT COMBATIVE THIS SHIFT. TOLERATED ORAL MEDS CRUSHED IN APPLESAUCE. DENIES PAIN OR SOB. BILATERAL LOWER EXTREMITY TUBI WAREHOUSE STOCK CLERK DRESSINGS IN PLACE. MODERATE ASSIST WITH TRANSFERS FROM W/C TO BED AND TOILET, USING GB. SLEEPING ON HOURLY ROUNDS. FALL PRECAUTIONS IN PLACE, CALL LIGHT WITHIN REACH. WILL CONTINUE TO MONITOR.
[2021-05-09 06:16] LABS: ALBUMIN 3.1 g/dL (3.4-5.0); CALCIUM 9.4 mg/dL (8.5-10.1); CREATININE 0.8 mg/dL (0.7-1.3); TOTAL BILIRUBIN 1.7 mg/dL (0.2-1.0); TOTAL PROTEIN 5.9 g/dL (6.4-8.2)
--- NOTE | 2021-05-09 15:43 | NUR ---
Assumed Pt care at shift change, report received at bedside, assessment as charted. Oriented to person, VSS, labs reviewed, refused meds at the scheduled time stating that it was too early and was still sleepy, low potassium noted in the am labs, Dr pearson, waiting for response, pt stable and comfortable, safety precautions maintained, takes pills crushed in apple sauce, no pain reported, good appetite, afebrile. Will cont' to monitor for change.
[2021-05-09 19:57] VITALS: BP 155/96
--- NOTE | 2021-05-10 05:07 | NUR ---
ASSUMED CARE AT 1900 OF 05/08. PATIENT IS A&O TO SELF, CONFUSED AND IMPULSIVE. PATIENT WAS UNCOOPERATIVE CARES AT HS, WAS REFUSING TO GET BLOOD SUGAR CHECKED OR GET IN BED WHEN OFFERED BY WAXING MACHINE OPERATOR. PATIENT WAS REAPPROACHED BY NURSE, AND REORIENTED TO PLACE AND SITUATION. MAXIMUM ASSIST OF TWO TO TRANSFER FROM W/C TO BED, USING GB. TOLERATED ORAL MEDICATION CRUSHED IN APPLE SAUCE. PATIENT HAS BEEN CALM AND SLEEPING DURING HOURLY ROUNDS. FALL PRECAUTIONS IN PLACE, CALL LIGHT WITHIN REACH. WILL CONTINUE TO MONITOR.
--- NOTE | 2021-05-10 14:54 | NUR ---
PT CARE ASSSUMED AT ABOUT 0700, AFTER HAND OFF REPORT RECEIVED AT BEDSIDE, ASSESSEMENT DONE AND CHARTED, VSS, LABS REVIEWED, PT A/O TO SELF, PLEASANT, CALM BUT IRITABLE AT TIMES, REFUSED ALL MORNING MEDS CRUSHED IN APPLE SAUCE, HCP AWARE, SITS IN WC SINCE BREAKFAST, SAFETY PRECAUTIONS MAINTAINED, HOURLY ROUNS SCHEDULED. PTS PREFERS TO LEAN ON HIS RIGHT SIDE WHEN SITTING, NO EVIDENCE OF NEUROMUSCULAR DEFICEIT, CT(-). WILL CONT' TO RE-ORIENT, RE-EDUCATE, AND MONITOR FOR CHANGE.
[2021-05-10 19:12] VITALS: BP 140/65
--- NOTE | 2021-05-11 02:43 | NUR ---
ASSUMED CARE AT 1900 OF 05/10. PATIENT IS A&O TO PERSON AND SITUATION. IMPULSIVE AND IRRITABLE, REORIENTED TO TIME AND PLACE AND RE-EDUCATED CARAMEL CUTTER MACHINE LIGHT USAGE. DENIES PAIN OR SHORTNESS OF BREATH. MAXIMUM ASSIST TO TRANSFER FROM W/C TO BED OR TOILET, USING GB. TOLERATED ORAL MEDS CRUSHED IN APPLE SAUCE. SLEEPING DURING HOURLY ROUNDS, ASSISTED WITH REPOSITIONING. FALL PRECAUTIONS IN PLACE, CALL LIGHT WITHIN REACH. WILL CONTINUE TO MONITOR.
[2021-05-11 08:00] VITALS: BP 130/67
--- NOTE | 2021-05-11 13:50 | NUR ---
Team meeting, follows commands when he wants to. He refuses medication sometimes. Meds in pudding. Incont of bowel and bladder. Sitting in wheel chair he leans to left. Getting him up. Dr Meza was consulted last week. Mod assist to total assist lower ext. dressing. Max to moderate assist with physical therapy. Fww min to mod assist 15-20ft. No stairs yet. mod to severe memory and cognition deficit. He 09/01 assist. BPCI. with private duty with physical assist vs dc skilled DC 05/18.
--- NOTE | 2021-05-11 16:26 | NUR ---
ASSUMED PT CARE AT SHIFT CHANGE, HANDOFF REPORT AT BEDSIDE, PT FOUND LAYED IN BED SLEEPING, SHIFT ASSESSMENT UP AWAKING, PT A/O TO SELF AND PLACE, COMPLAIN OF PAIN IN LOWER LEG BU REFUSED HIS MORNING MEDS, LOOKS SLIGHTLY SEDATED BUT COOPERATED WITH SOME COMMANDS, WORKED NOT TOO SUCESSFULLY WITH PT/OT, FAIR APPETITE, REFUSED SOME OF HIS CRUSHED MEDS IN APPLE SAUCE, VSS, LABS REVIEWED, ALL SAFETY PRECAUTIONS MAINTAINED, PT ON RA, MAX ASS, GB, FWW, INCONTINENT X 2 , NO BM NOTED DURING THIS SHIFT, SPENT MOST OF THE DAY ON A WHEELCHAIR, NO OTHER CONCERNS. WILL CONT' CURRENT THERAPY AND MONITOR FOR CHAMGE.
[2021-05-11 19:50] VITALS: BP 118/72
--- NOTE | 2021-05-12 04:17 | NUR ---
ASSUMED CARE AT 1930 OF 05/11. PATIENT IS A&O TO PERSON, INTERMITTENTLY CONFUSED, REORIENTED TO PLACE AND TIME. IRRITABLE AND RESTLESS AT HS, WAS FOUND TRYING TO REMOVE CLOTHES AND GAIT BELT OFF HIMSELF WHILE IN CHAIR. PATIENT IS REMINDED TO USE CALL LIGHT WHEN HE NEEDS ASSISTANCE. TOLERATED ORAL MEDS CRUSHED IN APPLE SAUCE. MAXIMUM ASSIST WITH TRANSFER TO BED USING SLIDE BOARD AND GB. FALL PRECAUTIONS IN PLACE. CALL LIGHT WITHIN REACH, WILL CONTINUE TO MONITOR.
[2021-05-12 07:15] VITALS: BP 141/62
--- NOTE | 2021-05-12 07:38 | NUR ---
ON 05/11 IN THE AFTERNOON, PT'S SON MELISA CALLED TO INQUIRE ABOUT WHAT WAS DISCUSSED AT THE TEAM CONFERENCE REGARDING DISCHARGE PLANNING. NM REVIEWED NOTES FROM THE MEETING WITH THE SON, WHO STATED A PLAN TO LOOK INTO FACILITIES THAT MAY BE ABLE TO PROVIDE CARE FOR THIS PATIENT. REFERRED HIM TO [facility] IN CASE MANAGEMENT AND MESSAGE HAS BEEN SENT TO THIS AM REGARDING THIS CONVERSATION, SON BELIEVES THAT THE PATIENT MAY NOT BE ABLE TO RETURN TO HIS HOME SETTING UNLESS THERE ARE SIGNIFICANT CHANGES TO HIS COGNITION.
--- NOTE | 2021-05-12 09:58 | NUR ---
Message left for pt's son Reji regarding SNF options and BPCI. Referral printed. Awaiting call back from pt's son to fax referrals.
--- NOTE | 2021-05-12 12:31 | NUR ---
PATIENT IS ALERT TO SELF, FORGETFUL, IMPULSIVE, AND CONFUSED AT TIMES. PATIENT TOOK MORNING MEDICATION CRUSHED IN APPLE SOURCE WITHOUT DIFFICULTY. HE IS EATING MEALS, AND DRINKING FLUID WELL. PATIENT IS ABLE TO FEED SELF. PATIENT REQUIRES ASSIST OF TWO STAFF WITH GAIT BELT TO TRANSFER. LCTA, RESP EVEN/UNLABORED, NO SOA/CYANOSIS NOTED. BS+X4, ABD SOFT, NON-TENDER TO TOUCH. INCONTINENT CARE PROVIDED PER STAFF, BARRIER CREAM APPLIED. PATIENT DENIES HAVING PHYSICAL PAIN, BUT MOANS WHEN ENCOURAGE TO TURN, OR ENCOURAGED TO STAND. HE DECLINE PAIN MEDICATION, NO SIGN OF ACUTE DISTRESS NOTED AT THIS TIME, CALL LIGHT IN REACH. WILL CONTINUE TO REDIRECT, AND MONITOR FOR SAFETY.
--- NOTE | 2021-05-12 13:04 | NUR ---
Nutrition: pt admitted with [facility], gait instability to rehab unit. Seen due to early LOS. Pt eating variable amounts of meals from 0-100% but reports appetite is ok and he likes the meals. Aware of meal ordering options. Reports lost some weight in September at time of knee replacement but has stabilized in the 230# region. On lactulose, folic acid, vitamin D, lasix, metformin. BG 125-210. 05/10 BM. Pt would like one ensure daily. Will send at dinner. Otherwise consider low nutrition risk.
[2021-05-12 19:54] VITALS: BP 155/73
--- NOTE | 2021-05-12 20:00 | NUR ---
ASSUMED CARE OF PT AT 1910. PT IS SLEEPING. IS AROUSABLE BUT, DOESN'T WANT TO BE BOTHERED. ALLLOWED THIS NURSE TO COMPLETE ASSESSMENT. REFUSES TO HAVE HEELS FLOATED & NIGHT MEDS REFUSED FOR NOW. PT IS COMFORATABLE. FALL PRECAUTIONS & HOURLY ROUNDING CONTINUED THIS SHIFT. Q2H TURNS. BILAT LE EDEMA NOTED. TUBIGRIPS IN PLACE. LABS & VITALS REVIEWED. CALL LIGHT WITHIN REACH. WILL CONTINUE TO MONITOR.
[2021-05-13 08:00] VITALS: BP 135/84
[2021-05-13 08:30] VITALS: BP 135/84
[2021-05-13 19:12] VITALS: BP 119/64
--- NOTE | 2021-05-14 00:58 | NUR ---
PT ASSESSMENT COMPLETED AND VSS. MEDS GIVEN ORDERED AND WELL TOLERATED. FALL PRECAUTIONS IN PLACE. UP TO THE BATHROOM WITH 2 MAX ASST/GAIT/WHEELCHAIR/SLIDEBOARD. VOIDED LARGE AMOUNT OF YELLOW URINE IN THE TOILET. INC A OF LARGE AMOUNT OF URINE WELL. PT GETS VERY FRUSTRATED. PROVIDED MUCH EMOTIONAL SUPPORT. SLEEP MEDICATION HELPFUL. TEETH CLEANED AND SOAKING OVERNIGHT. SLEEPING THIS TIME. WILL CONTINUE TO MONITOR FREQUENTLY.
[2021-05-14 05:30] LABS: ABSOLUTE NEUTROPHILS 3.4 thou/uL (1.4-8.2); BASOPHILS 0.8 % (0.0-2.0); EOSINOPHILS 2.2 % (0.0-3.0); HEMATOCRIT 31.9 % (42.0-52.0); HEMOGLOBIN 10.6 gm/dL (14.0-18.0); LYMPHOCYTES 20.7 % (24.0-44.0); MCH 28.5 pg (26.0-34.0); MCHC 33.2 g/dL (28.0-37.0); MCV 85.6 fL (80.0-100.0); MONOCYTES 10.9 % (1.0-8.0); PLATELET COUNT 193 thou/uL (150-400); POLYS 65.4 % (36.0-66.0); RBC 3.72 mil/uL (4.50-6.00); RDW 16.6 % (10.5-14.5); WBC 5.3 thou/uL (4.0-11.0)
[2021-05-14 06:07] LABS: CALCIUM 9.4 mg/dL (8.5-10.1); CREATININE 0.9 mg/dL (0.7-1.3); MAGNESIUM 1.4 mg/dL (1.8-2.4)
[2021-05-14 06:35] LABS: POTASSIUM 2.8 mmol/L (3.5-5.1)
[2021-05-14 08:30] VITALS: BP 144/77
--- NOTE | 2021-05-14 11:48 | NUR ---
ASSUMED CARE AT 0700. PATIENT IS ALERT AND ORIENTED X1, WITH CONFUSION. PATIENT IS IMPULSIVE. CONTINUES ON LACULOSE FOR HIS LIVER/NH3 LEVELS BEING HIGH. INC. OF B & B. FALL AND SAFETY PROTOCOLS IN PLACE. CONTINUES TO BE SLIDE BOARD TRANSFER FROM BED TO W/C. FALL AND SAFETY PROTOCOLS IN PLACE. DENIES PAIN AT THIS TIME. CONTINUES TO PROGRESS SLOWLY TOWARDS D/C GOALS. WILL CONTINUE TO MONITER
--- NOTE | 2021-05-14 12:30 | NUR ---
FAXED CLINICAL UPDATE TO [facility] SPOKE WITH EDWINA FROM [facility] AND SHE RECEIVED UPDATE.
--- NOTE | 2021-05-14 13:50 | PLAN ---
[facility] [place] [address] REHAB UNIT PLAN OF CARE Name: MELISA WATERS Room #: 515-P ADM IN M.R.#: [id number] Admission: 05/03/21 Attend Phys: Efraín Guevara MD Discharge: Date of : 45 Report #: [id number] THIS REPORT FOR: cc: Gonsalo Cline MD, Steven A. MD Smithson,Efraín Styles MD ~ DATE OF SERVICE: 05/05/2021 PROGRESS NOTE/OVERALL PLAN OF CARE HISTORY OF PRESENT ILLNESS: The patient was seen back in followup. He was in no distress. Both legs are wrapped. No focal calf swelling. Nursing noted he was less confused than the night before and more cooperative. He has been working in therapies with transfers with the sliding board, needing a max assist. Once up, he was able to ambulate up to 9 feet mod assist in the parallel bars. In occupational therapy, he has been max assist to dress upper body, dependent for lower body. Speech therapy is noted to have moderate auditory comprehension, moderate to severe expression, severe cognition, and severe memory. ASSESSMENT: A 75-year-old male with the following problem list: 1. Fall with closed head injury. 2. Delirium with likely baseline dementia as per Psychiatry. 3. Gait instability with recurrent falls. 4. Peripheral neuropathy. 5. Urinary tract infection. 6. History of atrial fibrillation. 7. Diabetes mellitus type 2. 8. Tobacco abuse. PLAN: The overall plan of care is based on the pre-admit screen and information garnered from therapy assessments. 1. Estimated length of stay is probably around at least 14 days. 2. Medical prognosis is reasonably good. 3. Anticipated interventions includes interdisciplinary acute inpatient rehabilitation program. 4. Anticipated functional outcomes would be for the patient to become modified independent with transfers, mobility, and ADLs or at least maximally independent with these as well as improvement as far as overall cognition. The goal would be for him to be maximal independence at the walker level. 5. Discharge destination would be back home where he lives with his girlfriend, although family has been considering other options for him as the girlfriend has her own health-related issues. 6. Expected therapy by discipline includes PT, OT and speech 1 hour per day each 5 days a week throughout the duration of the acute inpatient rehabilitation stay. [address] [address] REHAB UNIT PLAN OF CARE Name: MELISA WATERS Room #: 515-P [facility] IN M.R.#: [id number] Admission: 05/03/21 Attend Phys: Efraín Guevara MD Discharge: Date of : 45 Report #: [id number] ADDENDUM: The patient's prognosis for significant practical improvement within a reasonable period of time appears good. Given the patient's complex medical condition and risk of further medical complication, rehabilitation services could not be safely provided at the lower level of care such as a senior care facility. <ELECTRONICALLY SIGNED> By: Efraín Guevara MD 05/14/21 [id number] Efraín Guevara MD /nt
[2021-05-14 19:39] VITALS: BP 145/74
--- NOTE | 2021-05-15 03:39 | NUR ---
assumed care approx 1900 evening 05/14.pt has been sleeping so far this shift and pt told day RN that he was very tired from therapy and to not wake him up. therefore hs meds were not given and pt was not awoken. bed alarm on and call light in reach. will continue to monitor.
[2021-05-15 06:05] LABS: CALCIUM 9.5 mg/dL (8.5-10.1); CREATININE 0.8 mg/dL (0.7-1.3); MAGNESIUM 1.5 mg/dL (1.8-2.4); POTASSIUM 3.2 mmol/L (3.5-5.1)
[2021-05-15 08:00] VITALS: BP 147/65
[2021-05-15 09:30] VITALS: BP 147/65
[2021-05-15 17:35] LABS: URINE BILIRUBIN NEGATIVE (Negative); URINE BLOOD NEGATIVE (Negative); URINE CLARITY CLEAR; URINE COLOR YELLOW; URINE GLUCOSE-RANDOM* NEGATIVE (Negative); URINE KETONES NEGATIVE (Negative); URINE LEUKOCYTES NEGATIVE (Negative); URINE NITRITE NEGATIVE (Negative); URINE PROTEIN (DIPSTICK) NEGATIVE (Negative); URINE SPECIFIC GRAVITY 1.025 (1.005-1.035)
[2021-05-15 20:00] VITALS: BP 156/77
--- NOTE | 2021-05-16 02:06 | NUR ---
assumed care approx 1900 evening 05/15. pt sitting up in w/c at change of shift. assisted to bathroom to void before bed. pt took hs meds crushed with appplesauce tolerating well. pt in bed appears to be sleeping soundly. bed alarm on and call light in reach. will continue to monitor.
[2021-05-16 07:15] VITALS: BP 150/74
--- NOTE | 2021-05-16 17:28 | NUR ---
PT ALERT TO SELF AND MONTH. PT TAKES PILLS WHOLE WITH WATER. PT GAIT UNSTAEDY. PT IS INCONTINENT OF B&B . PT IS MORE AWAKE DURING THE DAY. VS CHARTED. WILL CONTINUE TO MONITOR.
[2021-05-16 20:05] VITALS: BP 159/78
--- NOTE | 2021-05-17 06:01 | NUR ---
PT ALERT AND ORIENTED WITH MOMENTS OF CONFUSION, FORGETFULNESS AND SOME IRRITATION. PT BELIEVES HE IS GOING HOME TODAY. PT WALKED TO THE BATHROOM WITH WALKER-UNSTEADY.HAD A BM. DENIES PAIN.TAKES MEDS OKAY WITH WATER. ROOM AIR AND IN NO DISTRESS. HE IS IMPULSIVE. FALL PREC IN PLACE, CALL LIGHT WITHIN REACH.
[2021-05-17 07:15] VITALS: BP 146/79
[2021-05-17 08:15] VITALS: BP 146/79
--- NOTE | 2021-05-17 08:45 | NUR ---
[facility] voice message from [facility].
--- NOTE | 2021-05-17 16:42 | NUR ---
BPCI. Faxed updates to [facility], they are still reviewing and faxed updates to [facility], they are still reviewing as well.
[2021-05-17 20:25] VITALS: BP 145/77
--- NOTE | 2021-05-17 21:33 | NUR ---
pt is very irrtitable. Chased me out of his room when i went to give him meds. he however took his meds. He is sitting on w/chair. Refused for me to help him get in bed.
[2021-05-18 07:15] VITALS: BP 154/80
--- NOTE | 2021-05-18 08:37 | NUR ---
PT SITTING UP IN W/C. PT DENIES ANY PAIN. PT HAS LOWER LEGS WRAPS AT THIS TIME. PT UP WITH X1 ASSIST VIA W/C. P[T TOOK MEDS THIS AM WITH THIN WATER. PT LUNGS CLEAR. PT HAS DRESSING TO LEFT NECK. PT JOKING WITH STAFF THIS AM.
--- NOTE | 2021-05-18 11:38 | NUR ---
PT WORKING WITH OT AND DRESSING TAKEN OFF OF LEFT NECK. DRESSING HAS GREEN DRAINAGE ON IT. REDDNESS IS SIZE OF SILVERDOLLAR AND NO SIGNS OF INFECTION.
--- NOTE | 2021-05-18 13:06 | NUR ---
Team meeting, recommendation, cont. working on placement for skilled rehab. Not dc today 05/18/21 r/t no accepting facility yet. daniele Buchanan is going to come and visit him. he will have to be lab melissa and or belt free for 48 hours. mode to severe memory and cognition deficits. BPCI. Dc when facility can be arranged.
[2021-05-18 19:28] VITALS: BP 138/70
--- NOTE | 2021-05-19 02:18 | NUR ---
assumed care approx 1900 evening 05/18. pt sitting up in w/c at change of shift. assisted with getting into bed and pts shorts removed and brief changed as pt was incontinent of urine. pt took hs meds with water tolerating well. pt appears to be sleeping soundly. bed alarm on and call light in reach. will continue to monitor.
--- NOTE | 2021-05-19 06:14 | NUR ---
pt slept well throughout the night. pt incontinent of urine and assisted with complete bed change this am. pt with small amt blood to big toe on left foot. appears pt rubbed his toe and end of bed rail. small area with skin slightly rubbed off. cleaned toe with wet cloth, applied bandaid. small pencil topped size area to toe. pt denied complaint.
[2021-05-19 07:15] VITALS: BP 149/89
--- NOTE | 2021-05-19 10:00 | NUR ---
PT GETTING UP WITH ST. PT DIDN'T WANT TO STAND AND GET INTO THE W/C. PT NEEDED ENCOURAGEMENT TO GET UP TO W/C. PT DID GET INTO W/C AND WENT TO ST. PT TOOK MEDS WITH WATER WITHOUT ANY ISSUES. PT IS A NIGHT OWL AND USED TO SLEEPING IN. PT LOWER EXT HAS TUBIX WRAPS ON BILATERALY.
[2021-05-19 10:14] VITALS: BP 149/89
--- NOTE | 2021-05-19 10:40 | NUR ---
PT HAS BEEN WITHOUT DEMETRIUS VELASCO IN W/C FOR 2 DAYS NOW. PT HAS NOT TRIED TO GET UP ON OWN WITHOUT ASSISTANCE. PT MENTAL STATUS IS IMPROVED AND NOT IMPULSIVE.
[2021-05-19] MEDS ORDERED: TRAZODONE HCL50 MG PO (12:53)
[2021-05-19] MEDS ORDERED: SEROQUEL 25 MG25 MG PO ×2 (12:53)
[2021-05-19] MEDS ORDERED: SEROQUEL 50 MG50 MG PO (12:53)
[2021-05-19] MEDS ORDERED: KLOR-CON M2020 MEQ PO (12:53)
[2021-05-19] MEDS ORDERED: SEROQUEL 100 M100 MG PO (12:53)
[2021-05-19] MEDS ORDERED: BAYER CHEWABLE81 MG PO (12:53)
[2021-05-19] MEDS ORDERED: LACTULOSE20 GM/30 M PO (12:53)
[2021-05-19] MEDS ORDERED: MAGOX 400400 MG PO (12:53)
[2021-05-19] MEDS ORDERED: SENNA8.6 MG PO (12:56)
[2021-05-19] MEDS ORDERED: TYLENOL325 MG PO (12:56)
[2021-05-19] MEDS ORDERED: AMMONIUM LACTA226 GM TOP (12:57)
--- NOTE | 2021-05-19 13:19 | NUR ---
[facility] liason here and visited with pt at bedside and dtr/son via phone. They can accept this afternoon and pickup via w/c van at 4pm. Pt and family agreeable to the dc plan. Pt wanted the liason to update his sign other Vandana as well on the plan to go to SNF at [facility]. The liason will f/u with Reji vigil and call Vandana. Chart copy to be sent with the pt. Nursing to call report. 124c and orders faxed to admissions at [facility].
--- NOTE | 2021-05-19 14:20 | NUR ---
Nutrition followup: pt continues with adequate appetite, 50-100% of meals, ensure daily. Last weight taken on 05/03. Request new weight. BM 05/18. BG controlled. Discharge plan pending. Low nutrition risk.
--- NOTE | 2021-05-19 15:40 | NUR ---
PT SITTING UP IN CHAIR AND WAITING FOR RIDE TO IGNIGHT.
--- NOTE | 2021-05-19 16:00 | NUR ---
PT LEFT VIA W/C. PT WANTED TO KNOW IF HE COULD LEAVE LATER DUE TO FAMILY COMING TO SEE HIM, PT WAS ABLE TO TRANSFER FROM W/C TO W/C WITH STAND-BY ASSIST.
--- NOTE | 2021-05-19 16:48 | NUR ---
GAVE REPORT TO MUKESH BUENROSTRO AT [facility].
== END 2021-05-19 16:00 | DRG 947 ==
PROVIDERS: Hospitalist; Nurse Practitioner; Physician Assistant; Psychiatry & Neurology Psychiatry; ADMIT Physical Medicine & Rehabilitation; ATTEND Physical Medicine & Rehabilitation
DX: R53.81 Other malaise (principal); J18.9 Pneumonia, unspecified organism; N39.0 Urinary tract infection, site not specified; F01.51 Vascular dementia, unspecified severity, with behavioral disturbance; I48.21 Permanent atrial fibrillation; E44.1 Mild protein-calorie malnutrition; E72.20 Disorder of urea cycle metabolism, unspecified; R26.89 Other abnormalities of gait and mobility; R31.9 Hematuria, unspecified; E11.42 Type 2 diabetes mellitus with diabetic polyneuropathy; S09.90XA Unspecified injury of head, initial encounter; Z20.822 Contact with and (suspected) exposure to COVID-19; R41.0 Disorientation, unspecified; R41.9 Unspecified symptoms and signs involving cognitive functions and awareness; E78.00 Pure hypercholesterolemia, unspecified; Z96.651 Presence of right artificial knee joint; I25.10 Atherosclerotic heart disease of native coronary artery without angina pectoris; F17.210 Nicotine dependence, cigarettes, uncomplicated; I48.0 Paroxysmal atrial fibrillation; E80.6 Other disorders of bilirubin metabolism; I11.0 Hypertensive heart disease with heart failure; R33.9 Retention of urine, unspecified; I87.2 Venous insufficiency (chronic) (peripheral); E87.70 Fluid overload, unspecified; I50.9 Heart failure, unspecified; Z95.0 Presence of cardiac pacemaker; W18.39XA Other fall on same level, initial encounter; I49.5 Sick sinus syndrome; Z68.30 Body mass index [BMI] 30.0-30.9, adult; Y93.89 Activity, other specified; Z86.711 Personal history of pulmonary embolism; Y92.89 Other specified places as the place of occurrence of the external cause; Y99.8 Other external cause status
CPT/HCPCS: 10112

== ENCOUNTER 2021-06-12 21:29 | Inpatient (IN) | payer OTHER, MEDICARE ==
[~2021-06-12] VITALS: Ht 185.4 cm; Wt 90.7 kg
--- NOTE | ~2021-06-12 | O ---
[facility] [place] [address] OPERATIVE REPORT Name: MELISA WATERS Room #: 201-P ADM IN M.R.#: [id number] Admission: 06/13/21 Attend Phys: José Miguel Meza MD Discharge: Date of : 45 Report #: [id number] THIS REPORT FOR: cc: Gonsalo Cline MD, Steven A. MD Kneidel,Russell Garcia MD ~ DATE OF SERVICE: 06/16/2021 PREOPERATIVE DIAGNOSIS: Right foot osteomyelitis. POSTOPERATIVE DIAGNOSIS: Right foot osteomyelitis. PROCEDURE: Right [id number] amputation. SURGEON: Russell Valentin MD ROLL PICKER: None. ANESTHESIA: General. ESTIMATED BLOOD LOSS: 500 mL DRAINS: One Hemovac drain was placed. COMPLICATIONS: There were no complications. DESCRIPTION OF PROCEDURE: The patient was brought to the operating room where he was placed under general anesthesia. Once under adequate general anesthesia, his right lower extremity was prepped and draped in a sterile manner. The extremity was elevated and tourniquet placed to 300 mmHg. A fish-mouth type incision and then based about the mid portion of the tibia was made. This was dissected sharply through the soft tissue to the fascia, which was then incised with the Bovie cautery. The Bovie was used to cut through the muscular compartments and the large bleeding vessel was tagged to later be ligated and the remainder were cauterized. The tibia was then transected with an oscillating saw and the fibula was transected as well in the oblique fashion a few centimeters proximal to this. The posterior tibial vessels were then suture ligated with 0 silk suture. The wound was irrigated copiously. The posterior flap was fashioned with an amputation knife and the flap was then closed first to the periosteum of the distal tibia with #1 Vicryl, 2-0 Vicryl was used in subcutaneous tissues and alejandro were used for the skin. The wounds were dressed with Xeroform, 4 x 4s, and a sterile soft compressive dressing was placed. Tourniquet was let down at approximately 1 hour. There were no complications from the procedure. The patient tolerated the procedure well and [facility] [address] [place] [address] OPERATIVE REPORT Name: MELISA WATERS Room #: 201-P ADM IN M.R.#: [id number] Admission: 06/13/21 Attend Phys: José Miguel Meza MD Discharge: Date of : 45 Report #: [id number] was to the recovery room without incident. Please note, a Hemovac drain was placed prior to wound closure. By: [id number] Russell Valentin MD /nt
--- NOTE | ~2021-06-12 | EMS ---
[address] [address] EMS Patient Care Report Name: MELISA WATERS Room #: 170-23 ADM IN M.R.#: [id number] Admission: 06/13/21 Attend Phys: José Miguel Meza MD Discharge: Date of : 45 Report #: [id number] THIS REPORT FOR: //name// Report Transmitted: 06/14/2021 14:55 EMS Care Summary [place], [place]/[facility] Incident [id number] @ 06/12/2021 20:54 Incident Location [facility] SONYA PERSAUD G-14 Patient MELISA WATERS Male, 75 Years 1945 Patient Address [address] [place] [address] Patient History Pacemaker/AICD,Gastro-Esophageal Reflux Disease (GERD),Depression,Type 2 Diabetes, Patient Allergies No known allergies, Chief Complaint INFECTION Disposition Transported No Lights/[place] Dispatch Reason Sick Person Transported To [facility] Narrative M41 DISPATCHED TO A SICK PERSON. M41 AOS AND FOUND THE PT WITH P36. [place] AND THEY STATE THAT HE HAS BEEN ACTING MORE CONFUSED SINCE YESTERDAY. THEY STATE THAT THE PT WAS BEING TREATED FOR AN INFECTION IN HIS HEEL AND BEDSORES ON HIS BUTTOCKS AND [address] [address] EMS Patient Care Report Name: MELISA WATERS Room #: 170-23 ADM IN M.Rena.#: [id number] Admission: 06/13/21 Attend Phys: José Miguel Meza MD Discharge: Date of : 45 Report #: [id number] HE HAD A PIC LINE BUT IT WAS PULLED OUT AND HE HAS MISSED SEVERAL INFUSIONS OF ANTIBIOTICS. PT DOES HAVE A 100.9 DEGREE FEVER. THE PT IS ALERT BUT CONFUSED. PT PAPERWORK OBTIANED. PT MOVED TO THE AMBULANCE. VITALS OBTAINED. BGA OBTAINED. PT PLACED ON 4 LPM O2 NC. M[address] [facility]GA. EN ROUTE PT REMAINED STABLE. REPORT GIVEN TO CHITRA PATEL. SIGNATURES OBTAINED. TRANSFER OF CARE TOOK PLACE. M41 IN SERVICE. 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 Vitals @21:18P: 98,R: 24,BP: 165/76,Pain: 4/10,GCS: 14,CO: 6,SpO2: 98,Revised Trauma: 12, @21:14P: 63,R: 24,BP: 163/86,Pain: 4/10,GCS: 14,Glucose: 151,SpO2: 89,Revised Trauma: 12, Assessments @21:06MENTAL:Confused,Person Oriented,SKIN:HEENT:Head/Face: No Abnormalities,Neck/Airway: No Abnormalities,LUNG SOUNDS:General: No Abnormalities,ABDOMEN:General: No Abnormalities,PELVIS//GI:No Abnormalities,EXTREMITIES:Right Leg: Other,Left Leg: Other,Capillary Refill: Right Upper: < 2 Sec,Left Arm: No Abnormalities,Right Arm: No Abnormalities,PULSE:Radial: 2+ Normal,NEURO:No Abnormalities, Impression Altered Mental Status Procedures @21:06 ALS Assessment Response: UnchangedSucceeded @21:10 Oxygen FlowRate: 4 Device: Nasal Cannula (NC) Response: ImprovedSucceeded Timeline 20:53,Call Received 20:53,Dispatch Notified 20:54,Dispatched [facility] [address] [place] [address] EMS Patient Care Report Name: MELISA WATERS Room #: 170-23 ADM IN .R.#: [id number] Admission: 06/13/21 Attend Phys: José Miguel Meza MD Discharge: Date of : 45 Report #: [id number] 20:55,En Route 21:03,On Scene 21:06,At Patient 21:06,ALS Assessment,Response: UnchangedSucceeded, 21:10,Oxygen FlowRate: 4 Device: Nasal Cannula (NC) Response: ImprovedSucceeded, 21:14,BP: 163/86 M,PULSE: 63,RR: 24 R,SPO2: 89 Ox,ETCO2: ,B,PAIN: 4,GCS: 14, 21:18,BP: 165/76 M,PULSE: 98,RR: 24 R,SPO2: 98 Ox,ETCO2: ,BG: ,PAIN: 4,GCS: 14, 21:32,Depart Scene 21:33,At Destination 21:44,Call Closed Disclaimer v1.1 Copyright 2020 [employer] This EMS Care Summary contains data elements from the applicable legal record (which may be displayed differently). It is designed to provide pertinent information for the following purposes: continuity of care, clinical quality, and state data reporting. The complete legal record is available to ED staff and administrators of the receiving hospital in [facility]'s Patient Tracker. All data is provided "as is."
[~2021-06-12 21:29] MED LIST changes: +AMMONIUM LACTA226 GM TOP; +BAYER CHEWABLE81 MG PO; +FOLIC ACID1 MG PO; +KLOR-CON M2020 MEQ PO; +LACTULOSE20 GM/30 M PO; +MAGOX 400400 MG PO; +PEPCID20 MG PO; +SENNA8.6 MG PO; +SEROQUEL 100 M100 MG PO; +SEROQUEL 25 MG25 MG PO; +SEROQUEL 50 MG50 MG PO; +TRAZODONE HCL50 MG PO; +TYLENOL325 MG PO
[2021-06-12 21:31] VITALS: BP 168/81
[2021-06-12 22:05] LABS: ABSOLUTE NEUTROPHILS 8.6 thou/uL (1.4-8.2); BASOPHILS 0.3 % (0.0-2.0); EOSINOPHILS 0.1 % (0.0-3.0); HEMOGLOBIN 10.2 gm/dL (14.0-18.0); LYMPHOCYTES 8.6 % (24.0-44.0); MCHC 32.7 g/dL (28.0-37.0); MCV 85.5 fL (80.0-100.0); MONOCYTES 9.5 % (1.0-8.0); PLATELET COUNT 311 thou/uL (150-400); POLYS 81.5 % (36.0-66.0); RBC 3.63 mil/uL (4.50-6.00); RDW 16.8 % (10.5-14.5); WBC 10.6 thou/uL (4.0-11.0)
[2021-06-12 22:07] LABS: HCO3 25.2 mmol/L (22.0-26.0); PCO2 30.8 mmHg (35.0-45.0); PO2 56.2 mmHg (80.0-100.0); pH 7.531 (7.360-7.450); sO2 92.6 % (92.0-98.0)
[2021-06-12 22:23] LABS: CALCIUM 9.1 mg/dL (8.5-10.1); CREATININE 0.8 mg/dL (0.7-1.3)
[2021-06-12 22:33] LABS: ALBUMIN 2.1 g/dL (3.4-5.0); MAGNESIUM 1.6 mg/dL (1.8-2.4); TOTAL BILIRUBIN 1.2 mg/dL (0.2-1.0); TOTAL PROTEIN 6.3 g/dL (6.4-8.2)
[2021-06-12 22:54] LABS: URINE BILIRUBIN 1+ (Negative); URINE BLOOD 1+ (Negative); URINE CLARITY CLEAR; URINE COLOR YELLOW; URINE GLUCOSE-RANDOM* NEGATIVE (Negative); URINE KETONES 1+ (Negative); URINE LEUKOCYTES-REFLEX NEGATIVE (Negative); URINE NITRITE-REFLEX NEGATIVE (Negative); URINE PROTEIN (DIPSTICK) TRACE (Negative)
[2021-06-12 23:05] LABS: ICTOTEST (BILI CONFIRMATORY) Positive (Negative)
[2021-06-12 23:30] LABS: BACTERIA-REFLEX None Seen /HPF (None Seen); CASTS None Seen /LPF (None Seen); CRYSTALS None Seen /LPF (None Seen); MUCUS 0-3 Light strn/LPF (None Seen); SQUAMOUS 0-3 Few /LPF (0-3); URINE RBC 1-2 Rare /HPF (NONE SEEN); URINE WBC-REFLEX None Seen /HPF (0-5)
[2021-06-13 03:59] VITALS: BP 168/86
[2021-06-13 05:07] LABS: HEMATOCRIT 30.5 % (42.0-52.0); HEMOGLOBIN 10.1 gm/dL (14.0-18.0); MCH 28.4 pg (26.0-34.0); MCHC 33.3 g/dL (28.0-37.0); MCV 85.4 fL (80.0-100.0); RBC 3.57 mil/uL (4.50-6.00); RDW 16.6 % (10.5-14.5); WBC 10.8 thou/uL (4.0-11.0)
[2021-06-13 05:20] LABS: CREATININE 0.8 mg/dL (0.7-1.3); POTASSIUM 3.7 mmol/L (3.5-5.1)
[2021-06-13 09:16] VITALS: BP 180/78
[2021-06-13 12:39] VITALS: BP 119/98
[2021-06-13 15:08] VITALS: BP 119/98
[2021-06-13 22:02] VITALS: BP 134/64
--- NOTE | 2021-06-14 00:28 | NUR ---
PT MOVED FROM ER CART INTO HOSPITAL BED.
--- NOTE | 2021-06-14 02:35 | NUR ---
FAMILY CONTACT INFO: SHRAVAN GAY (DTR) - [phone] MELISA WATERS (SON) - [phone]
--- NOTE | 2021-06-14 05:57 | NUR ---
DTR SHRAVAN UPDATED ON POC AND HOW PT DID DURING THE NIGHT.
[2021-06-14 06:11] LABS: ABSOLUTE NEUTROPHILS 6.2 thou/uL (1.4-8.2); BASOPHILS 0.2 % (0.0-2.0); EOSINOPHILS 0.9 % (0.0-3.0); HEMATOCRIT 28.5 % (42.0-52.0); HEMOGLOBIN 9.3 gm/dL (14.0-18.0); LYMPHOCYTES 10.1 % (24.0-44.0); MCH 28.1 pg (26.0-34.0); MCHC 32.6 g/dL (28.0-37.0); MCV 86.2 fL (80.0-100.0); MONOCYTES 8.9 % (1.0-8.0); PLATELET COUNT 269 thou/uL (150-400); POLYS 79.9 % (36.0-66.0); RDW 16.6 % (10.5-14.5); WBC 7.8 thou/uL (4.0-11.0)
--- NOTE | 2021-06-14 06:21 | NUR ---
PT SLEPT MOST OF THE NIGHT. INCONTINENT OF BOWEL AND BLADDER THIS SHIFT. VSS. AFEBRILE. RLE ELEVATED ON PILLOWS. RT HEEL WOUND EDWINA; BLISTERS AND BRUISING NOTED TO RIGHT FOOT. IVF AND ABX ADMINISTERED ORDERED. WILL GIVE REPORT TO ONCOMING NURSE.
[2021-06-14 06:22] LABS: ALBUMIN 1.7 g/dL (3.4-5.0); CALCIUM 8.7 mg/dL (8.5-10.1); CREATININE 0.7 mg/dL (0.7-1.3); POTASSIUM 3.4 mmol/L (3.5-5.1); TOTAL BILIRUBIN 0.6 mg/dL (0.2-1.0); TOTAL PROTEIN 5.5 g/dL (6.4-8.2)
[2021-06-14 08:51] VITALS: BP 157/90
--- NOTE | 2021-06-14 17:18 | NUR ---
PT WILL HAVE MRI FRST THIN IN THE AM PER DR. SMITH.
[2021-06-14 21:03] VITALS: BP 150/71
[2021-06-15 01:28] VITALS: BP 160/80
[2021-06-15 05:45] VITALS: BP 142/67
[2021-06-15 06:36] LABS: ABSOLUTE NEUTROPHILS 6.5 thou/uL (1.4-8.2); BASOPHILS 0.3 % (0.0-2.0); EOSINOPHILS 1.2 % (0.0-3.0); HEMATOCRIT 28.6 % (42.0-52.0); HEMOGLOBIN 9.3 gm/dL (14.0-18.0); LYMPHOCYTES 8.4 % (24.0-44.0); MCH 28.2 pg (26.0-34.0); MCHC 32.5 g/dL (28.0-37.0); MCV 86.8 fL (80.0-100.0); MONOCYTES 8.4 % (1.0-8.0); PLATELET COUNT 268 thou/uL (150-400); POLYS 81.7 % (36.0-66.0); RDW 16.9 % (10.5-14.5)
--- NOTE | 2021-06-15 11:32 | NUR ---
Case opened to follow for dc planning. Pt well known to cm from recent inpt stay and acute rehab 5N stay last month. He dc'd to SNF at [facility] for ongoing wound care, iv atb and therapy. Pt readmitted with cellulitis/wound infection/possible osteo. Ortho/wound care and ID are consulted. MRI pending and ortho had mentioned possible need for BKA. Trenton Rice has been at bedside and conversing with the consultants. Clinical updated faxed to admissions at [facility]. They can accept for readmission to SNF and pt is in the BPCI program. Will follow along.
--- NOTE | 2021-06-15 15:45 | NUR ---
PT TAKEN TO MRI THIS MORNING, PER ORDER IMAGING IS UNCLEAR, PT WAS TAKEN DOWN TO CT SCAN, SON AND DAUGHTER PRESENT AT BEDSIDE THIS SHIFT, BOTH MEMBERS PROVIDED UPDATE. PT REMAINS UNAWARE OF CURRENT SITUATION, AWARE OF WHO HE IS, WHERE HE IS, AND TIME. PT HAS BEEN INCONTINENT MULTIPLE TIMES THIS SHIFT, RN + STAFF MEMBERS PROVIDED LINEN CHANGE TWICE. REMAINS ON OXYGENATION 2L SUPPORT, HEART RATE CONTROLLED ON CURRENT MEDICATIONS, ABX ADMINISTERED AT AN APPROPERIATE TIME. 2N CHITRA ALBERT GIVEN REPORT TO. RN SIGNING OFF
[2021-06-15 17:07] VITALS: BP 142/65
--- NOTE | 2021-06-15 18:10 | NUR ---
pt is new admit from ED. Pt VS stable. Pt has wound to R heel, dressing changed. Pt had family at bedside. Pt is room air. Pt is able to make needs known
[2021-06-15 18:20] VITALS: BP 142/65
[2021-06-15 20:00] VITALS: BP 143/61
--- NOTE | 2021-06-15 23:59 | HC ---
[facility] [place] [address] CONSULTATION Name: MELISA WATERS Room #: 201-P ADM IN M.R.#: [id number] Admission: 06/13/21 Attend Phys: José Miguel Meza MD Discharge: Date of : 45 Report #: [id number] THIS REPORT FOR: cc: Gonsalo Cline MD, Steven A. MD Geha, Daniel J. MD ~ DATE OF SERVICE: 06/13/2021 INFECTIOUS DISEASE CONSULTATION REASON FOR CONSULTATION: I was asked to evaluate concerning right lower extremity soft tissue infection and pneumonia. HISTORY OF PRESENT ILLNESS: The patient is a 75-year-old who has history of diabetes, stroke, coronary artery disease, who suffered a closed head injury in April. He had a prolonged hospital stay, then transferred to a fdc unit. He developed a wound to his heel. This has progressed. Trial of IV antibiotics at the [facility] did not improve his situation ____ he pulled his PICC line out and was off antibiotics for several days. Now, presents with more confusion, weakness, hypoxia, and worsening right foot wound. The patient was a poor historian. Most of the history was gleaned from his daughter who was in attendance. He has had a low-grade fever. He has been encephalopathic, but seems to be brighter this afternoon. REVIEW OF SYSTEMS: A 14-point review was negative other than what has been described above. He does have an indwelling Alonso catheter. ALLERGIES: None known. MEDICATIONS: As noted on his MAR, which were reviewed. PAST MEDICAL HISTORY: Angioplasty for coronary artery disease, pyloric stenosis as an , cholelithiasis, tonsillitis, he got tonsillectomy, knee surgery, hypertension, diabetes, coronary artery disease, hyperlipidemia, atrial fibrillation, right total knee arthroplasty, stroke, cystitis, obesity, dementia, depression, obstructive sleep apnea, gastroesophageal reflux, falls, delirium, anxiety, peripheral vascular disease, BPH, restless legs syndrome, vitamin B12 deficiency with anemia. FAMILY HISTORY: No report of tuberculosis. SOCIAL HISTORY: Nonsmoker, no significant alcohol intake. PHYSICAL EXAMINATION: GENERAL: He is afebrile and hemodynamically stable. He is alert and cooperative. [address] [address] CONSULTATION Name: MELISA WATERS Room #: 201-P [facility] IN ..#: [id number] Admission: 06/13/21 Attend Phys: José Miguel Meza MD Discharge: Date of : 45 Report #: [id number] EXTREMITIES: He had orders odorous wound to his right foot with eschar and gangrenous changes to his heel and his hindfoot. There was surrounding erythema, which extended up his lower extremity. He had venous stasis changes as well along with pressure injury over the dorsum of his mid foot. He had decreased pulses, not palpable in his dorsalis pedis and posterior tibial. He had delayed capillary refill. Small eschar wound to the tip of his first toe. Pulses in his right popliteal was palpable and his right femoral was palpable as well. HEENT: Eyes without scleral icterus. Mouth without mucositis. NECK: Supple. LUNGS: Crackles in the right base posteriorly. HEART: Regular, without murmur. ABDOMEN: Soft and nontender. No hepatosplenomegaly or mass. External genitalia without mass or lesion. Rectal examination not performed. SPINE: Nontender. LABORATORY DATA: Reviewed. MICROBIOLOGY: Reviewed. Chest x-ray reviewed. IMPRESSION: 1. A 75-year-old with right lower extremity gangrene of his heel and hindfoot. Suspect underlying peripheral vascular disease as a predisposing factor here. 2. Healthcare-associated pneumonia, right lower lobe. 3. Diabetes. 4. Atrial fibrillation, on anticoagulation 5. Hypertension 6. Dementia. RECOMMENDATION: We will continue with broad antibiotic coverage. Check arterial studies, x-ray of his right foot, diabetic control, and serial laboratories along with chest x-ray. I have discussed the case with attending and the patient's daughter at the bedside. <ELECTRONICALLY SIGNED> By: Cal Gentile MD 06/15/21 2139 1710 05 Cal Gentile MD /nt
[2021-06-16] VITALS (10 sets, daily range): BP systolic 103–158; BP diastolic 57–70
--- NOTE | 2021-06-16 11:43 | NUR ---
Spoke with dtr Amada at bedside. She is wanting to complete advance directive/POA for healthcare. Gave her [facility] AD form. Reviewed the form. She plans to be DPOA and brother alternate. Sp with RN who reports patient orientated to complete form. Dtr reports chaplain Luna tried prec but unsuccessful. Patient today orientated and agreeable to complete. Spoke with [facility]. Updated patient to have sx today at 3. They want form completed prior to sx. [facility] reports will be here at 12:30-!300. Updated Rn. Patient prev dc from acute rehab to [facility]. Dtr reports do not want to return to [facility]. She reports little therapy at [facility]. She reports it was shift change and her father she knew had a fever. The RN reports shift change and need next Rn to check temp. After an hour dtr took thermomater from nursing station and temp 101. She reports aide came later and asked to use dtrs thermmoneter and she reports it was [employer] and she return to nursing station. Dtr reports wound care good but appears limnited staff overall. Discussed post acute care and gave dtr skilled list to review. She plans to discuss today with brother.
[2021-06-16 13:06] LABS: CALCIUM 8.8 mg/dL (8.5-10.1); CREATININE 0.6 mg/dL (0.7-1.3); POTASSIUM 3.1 mmol/L (3.5-5.1)
--- NOTE | 2021-06-16 18:29 | NUR ---
Pt A & O x2. Pt VS stable. Pt in contact precautions. PT VS stable. Pt was on room air before surgery. Pt has surgery this shift. Pt is a-fib on the tele. Pt received medications as ordered. Pt is able to make needs known
[2021-06-17] VITALS (9 sets, daily range): BP systolic 104–138; BP diastolic 44–74
--- NOTE | 2021-06-17 03:45 | NUR ---
Assumed pt care at 1900. Pt is very lethargic. Post-op surgical patient. Hemovac in place. Daughter at bedside. Pt denies pain to surgical site. Fall precaution in place. Assessment completed and documented. Vital signs stable. Scheduled meds administered to pt. No acute event through the night. Continue to monitor. No further need at this time.
[2021-06-17 05:04] LABS: POTASSIUM 4.1 mmol/L (3.5-5.1)
--- NOTE | 2021-06-17 17:07 | NUR ---
THIS CM SPOKE TO PTS DAUGHTER SHRAVAN. SHE INFROMED SHE AND HER BROTHER LOOKED AT SNF LIST PROVIDED TO HER YESTERDAY BUT DIDNT FINALIZE A CHOICE AT THIS TIME. SHE INFORMED YESTERDAY WAS A ROUGH DAY/LONG DAY WITH PT HAVING BKA. REVIEWED LIST WITH PT AND SENT REFERRAL TO [facility] PER SHRAVAN REQUEST.
--- NOTE | 2021-06-17 18:36 | NUR ---
PATIENT RESTED IN BED MOST OF THE DAY WORKED WITH PT/OT. IMPULSIVE THIS AM REMOVED HIS IV, TURNS SELF IN BED. THIS AFTERNOON PATIENT WAS COOPERATIVE, USED CALL LIGHT APPROPRIATELY. NO BM TODAY. FAMILY AT BED SIDE MOST OF THE AFTERNOON.
[2021-06-18] VITALS (7 sets, daily range): BP systolic 100–150; BP diastolic 45–85
[2021-06-18 04:45] LABS: WBC 7.5 thou/uL (4.0-11.0)
[2021-06-18 04:47] LABS: MCH 28.2 pg (26.0-34.0); MCHC 32.5 g/dL (28.0-37.0); MCV 86.7 fL (80.0-100.0); RBC 2.28 mil/uL (4.50-6.00)
[2021-06-18 04:52] LABS: HEMATOCRIT 19.8 % (42.0-52.0); HEMOGLOBIN 6.4 gm/dL (14.0-18.0)
--- NOTE | 2021-06-18 11:00 | NUR ---
Obtain current weight
--- NOTE | 2021-06-18 19:45 | NUR ---
PATIENT IS WATCHING THE GAME, PAIN MEDICATION GIVEN PRN, GAVE 1 UNIT OF BLODD, HEMOGLOBIN 7.5. VANCO GIVEN PER PHARMACIST. STUMP MALTED MILK MASHER APPLIED. CALL LIGHT WITHIN REACH, WILL CONTINOUS MONITORING.
[2021-06-19 03:25] VITALS: BP 138/60
[2021-06-19 07:30] VITALS: BP 141/60
--- NOTE | 2021-06-19 10:09 | NUR ---
A/O X 4. FLAT AFFECT. 2 L O2 VIA NASAL CANNULA. BEDBOUND. LEFT FOREARM PIV DRESSING D/C/I WITH NS INFUSING @ 75 MLS/HR. INCONT OF B/B. NEW RIGHT BKA-MODERATE DRAINAGE NOTED ON GAUZE, ABD, LARA NOTED, DRESSING CHANGED. INCONT B/B. BS 111. NO INSULIN GIVEN THIS MORNING. HAS STUMP SRINKER IN PLACE. GRIMACE IN PAIN DURING DRESSING CHANGE. HIS SON MELISA CALLED FOR AN UPDATE. TOOK MEDS WHOLE.
[2021-06-19 16:00] VITALS: BP 147/60
[2021-06-19 21:27] VITALS: BP 140/48
--- NOTE | 2021-06-20 04:18 | NUR ---
PT LYING IN BED. DENIES NEED FOR PAIN MEDICATION. RESTING COMFORTABLY. NO NEEDS VOICED. CALL LIGHT WITHIN REACH. FREQUENT OBSERVATION.
[2021-06-20 04:45] VITALS: BP 148/68
[2021-06-20 07:00] VITALS: BP 144/66
[2021-06-20 16:00] VITALS: BP 150/59
[2021-06-20 19:30] VITALS: BP 136/54
[2021-06-21 04:00] VITALS: BP 148/56
--- NOTE | 2021-06-21 04:11 | NUR ---
PT IS ALERT AND OREINTED X4. LUNGS ARE CLEAR ON ROOM AIR. ABDOMEN IS SOFT BOWEL SOUNDS ACTIVE X4. COMPLAINS OF PAIN IN RIGHT LOWER AMPUTEE PAIN MEDS GIVEN SEE MAR FOR TIME OF ADMINISTRATION. INCONTINENT CHANGED. CALL LIGHT WITHIN REACH IF NEEDS NURSING ASSSISTNCE PER STAFF.
[2021-06-21 07:10] VITALS: BP 137/80
[2021-06-21 12:30] VITALS: BP 141/67
--- NOTE | 2021-06-21 15:25 | NUR ---
CLINICAL UPDATES SENT TO [facility] FOR POSSIBLE SNF ONCE PT MEDIALLY STABLE TO DC. WAS INFORMED BY TERRI AT [facility] STILL NOT ABLE TO ACCEPT NEW PTS AT THIS TIME. HOPING TO BE ABLE TO TOMORROW. THIS CM PLACED CALL TO PTS DAUGHTER SHRAVAN TO UPDATE AND SEE IF CHOSE ANOTHER FACILTY TO SEND REFERRALS. UNABLE TO REACH. CM WILL CONTINUE TO FOLLOW.
[2021-06-21 16:55] VITALS: BP 146/56
[2021-06-21 20:05] VITALS: BP 134/44
[2021-06-22 04:15] VITALS: BP 152/70
--- NOTE | 2021-06-22 06:44 | NUR ---
ASSUMED CARE OF PT AT 1900. PT ASSESSED TO BE AOX3 75M PRESENTING POST R LEG AMPUTATION. PT WAS ABLE TO REST QUIETLY THROUGHOUT THE NIGHT WITH NO COMPLAINTS IN BED, VSS. PT TURNED TO OFFLOAD SACRAL WEIGHT AND BED CHANGED D/T SPILLING OF URINAL 2X. PT STABLE ON RA, FLUIDS RUNNING, R LEG WRAP INTACT, AND STAYED IN BED THROUGHOUT THE NIGHT. WILL CONT TO MONITOR.
[2021-06-22 07:30] VITALS: BP 158/63
[2021-06-22 11:56] VITALS: BP 152/71
--- NOTE | 2021-06-22 12:50 | NUR ---
Please obtain post-amputation weight
--- NOTE | 2021-06-22 13:07 | PATH ---
[facility] [address] [place] [address] PATHOLOGY RPT PROCEDURE Name: MELISA WATERS Room #: 201-P ADM IN M.R.#: [id number] Admission: 06/13/21 Date of : 45 Discharge: Report #: [id number] Path Case #: [id number] LCA Accession Number: [id number] . 01 Material submitted: . knee - RIGHT BKA- BELOW KNEE AMPUTATION. Modifiers: inferior, right . 01 Clinical history: . BELOW KNEE AMPUTATION (+++) OSTEOMYELITIS RIGHT FOOT . 02 Diagnosis: Right, below knee amputation: - Skin and soft tissue with gangrenous type necrosis. - Skin lesions with scar tissue formation, hyperkeratosis and parakeratosis. - Vessel wall with severe atherosclerotic narrowing and dystrophic calcification. - Underlying bone with acute osteomyelitis. - Skin and softt issue at resection margins are viable, without inflammation. (ANK:william; 06/21/2021) QMS 06/21/2021 1158 Local . 02 Electronically signed: . Harriett Salazar MD, Pathologist NPI- [id number] . 01 Gross description: . The specimen is received in formalin, labeled "Melisa Waters, right BKA" and consists of a right below the knee amputation (17.0 cm in length by 8.0 x 7.5 cm) with an attached right foot (26.8 cm in length by 9.5 cm in width) with 5 attached digits each displaying an attached bowden thickened nail. The heel displays a soft necrotic brown ulcer (9.0 x 8.0 cm) that comes to within 10.5 cm from the nearest surgical margin (inked black). The posterior calf displays a bowden roughened lesion (lesion #1, 1.7 x 1.5 cm) that comes to within 1.5 cm from the nearest margin. The posterior calf also displays a second pink-smallwood lesion (lesion #2, 4.5 x 2.2 cm) that involves the margin (inked blue). Located on the dorsal ankle, medial foot, lateral foot and overlying the lateral malleolus are multiple pink well-circumscribed areas of discoloration (ranging from 1.4 x 1.2 cm to 10.5 x 7.8 cm), the nearest of which comes to within 9.3 cm from the nearest margin. The areas of discoloration also display skin slippage. Sectioning through the calcaneus underlying the ulcer reveals donovan-brown discolored but otherwise unremarkable underlying bone. The anterior tibial artery near the margin is markedly calcified. Registered Nurse Cardiovascular Icu sections are submitted following decalcification as [address] [address] PATHOLOGY RPT PROCEDURE Name: MELISA WATERS Room #: 201-P ADM IN M.R.#: [id number] Admission: 06/13/21 Date of : 45 Discharge: Report #: [id number] Path Case #: [id number] follows: A1: Skin and underlying soft tissue (inked black) nearest ulcer, submitted en face, represented and perpendicular section of lesion #2 to show proximity to margin (inked blue), represented A2: Ulcer, represented A3: Lesion #1 and lesion #2, represented A4: Areas of discoloration, represented A5: Dorsalis pedis, represented, popliteal artery and vein at margin, submitted en face, entirely submitted A6: Bone underlying ulcer, represented ([employer] [place]; 06/17/2021) DKA/DKA 06/17/2021 1605 Local . 02 Pathologist provided ICD-10: I96, L85.8, R23.4, M86.8X6 . 02 CPT . 090996, [id number] Specimen Comment: A courtesy copy of this report has been sent to [phone] Specimen Comment: [id number], Specimen Comment: Report sent to , DR KENT / DR LANE Specimen Comment: A duplicate report has been generated due to demographic updates. Performed at: [facility] [address], [place], [place] [id number] MD Izaiah Ramey MD Phone: [phone] Performed at: [address] [id number] MD Harriett Salazar MD Phone: [phone]
[2021-06-22 15:30] VITALS: BP 146/60
--- NOTE | 2021-06-22 17:04 | NUR ---
CM SPOKE TO PTS DAUGHTER SHRAVAN THIS DAY OVER THE PHONE. INFORMED PT MEDICALLY STABLE TO DC. [facility] DOES NOT HAVE BEDS AVAILABLE AT THIS TIME HOWEVER PER TERRI, MAY HAVE AVAILABLE TOMORROW BUT UNABLE TO CONFIRM. SPOKE TO SHRAVAN ABOUT OTHER FACLITY CHOICES SHOULD A BED NOT BE AVAILABLE TOMORROW. SHE WAS VERY TEARFUL AND INDICATEFD SHE REALLY WANTS [facility] SHE KNOWS SOMEONE WHO WAS THERE AND HAD GOOD RESULTS. IT IS ALSO A BLOCK FROM HER HOME AND SHE WANTS TO STAY CLOSE AND SHE HAS 3 SMALL KIDS. INFORMED HER THIS CM WOULD F/U WITH [facility] IN AM. IF NO BED AVAILABLE THIS CM WILL CALL AGAIN IN AM FOR ANOTHER CHOICE TO SEND REFERRAL. CM FOLLOWING.
[2021-06-22 19:27] VITALS: BP 142/67
[2021-06-23 03:59] VITALS: BP 140/48
--- NOTE | 2021-06-23 04:32 | NUR ---
Assumed pt care at 1900. Pt is alert and oriented to self. Pt is stable and laying in bed. Denies pain. Fall precaution in place. Assessment completed and documented. Scheduled meds administered to pt. No acute event through the night. Continue to monitor. No further needs at this time.
[2021-06-23 08:03] VITALS: BP 145/62
[2021-06-23 11:46] VITALS: BP 146/56
--- NOTE | 2021-06-23 13:08 | NUR ---
Pt dc'd to snf at [facility] today. They have confirmed a bed and setup a stretcher van ride at 2:30 today. Chart copy in progress. Orders faxed to admissions. Dtr notified by unit cm but asking about 5N consult. 5N rehab inpatient auditor to call her. Pt is not a good candidate as he was recently on acute rehab and dc'd to snf with likely need for ltc as going home is not a safe options. Michelle to call the dtr to discuss further. Nursing to call report to the SNF. 124c faxed as well.
[2021-06-23 15:54] VITALS: BP 164/73
== END 2021-06-23 18:28 | DRG 239 ==
LOC: ER 21:29 → EROBS 06-13 01:13 → 2N 06-13 01:13 → EROBS 06-13 23:29 → 2N 06-15 16:11
PROVIDERS: Anesthesiology; Internal Medicine; Nurse Practitioner Family; Orthopaedic Surgery Foot and Ankle Surgery; Physician Assistant; Specialist; ADMIT Hospitalist; ATTEND Hospitalist
PROC: 0Y6H0Z2 Detachment at Right Lower Leg, Mid, Open Approach (ICD-10-PCS; principal; 2021-06-16)
PROC: 30233N1 Transfusion of Nonautologous Red Blood Cells into Peripheral Vein, Percutaneous Approach (ICD-10-PCS; 2021-06-18)
DX: E11.52 Type 2 diabetes mellitus with diabetic peripheral angiopathy with gangrene (principal); J18.9 Pneumonia, unspecified organism; J96.01 Acute respiratory failure with hypoxia; E43 Unspecified severe protein-calorie malnutrition; R65.11 Systemic inflammatory response syndrome (SIRS) of non-infectious origin with acute organ dysfunction; L03.115 Cellulitis of right lower limb; M86.171 Other acute osteomyelitis, right ankle and foot; L97.419 Non-pressure chronic ulcer of right heel and midfoot with unspecified severity; I96 Gangrene, not elsewhere classified; M86.8X6 Other osteomyelitis, lower leg; E11.69 Type 2 diabetes mellitus with other specified complication; E11.40 Type 2 diabetes mellitus with diabetic neuropathy, unspecified; I10 Essential (primary) hypertension; I25.10 Atherosclerotic heart disease of native coronary artery without angina pectoris; E78.00 Pure hypercholesterolemia, unspecified; E66.9 Obesity, unspecified; N40.0 Benign prostatic hyperplasia without lower urinary tract symptoms; G25.81 Restless legs syndrome; E11.51 Type 2 diabetes mellitus with diabetic peripheral angiopathy without gangrene; F32.9 Major depressive disorder, single episode, unspecified; G47.33 Obstructive sleep apnea (adult) (pediatric); I48.0 Paroxysmal atrial fibrillation; R53.81 Other malaise; I87.8 Other specified disorders of veins; L89.620 Pressure ulcer of left heel, unstageable; F03.90 Unspecified dementia, unspecified severity, without behavioral disturbance, psychotic disturbance, mood disturbance, and anxiety; Z95.5 Presence of coronary angioplasty implant and graft; Z89.611 Acquired absence of right leg above knee; Z68.26 Body mass index [BMI] 26.0-26.9, adult; Z20.822 Contact with and (suspected) exposure to COVID-19
CPT/HCPCS: 10081; 50010; 50101; 50386; 51412; 53000; 56524; 56525; 57091; 57095; 57180; 62110; 62900; 70005